=== PATIENT | female | born 1965 | race Caucasian/White ===

== ENCOUNTER 2020-06-14 10:27 | Outpatient (CLI) | payer BC, SELFPAY ==
--- NOTE | ~2020-06-14 | US_ITS ---
EXAMINATION: US venous doppler [facility] DATE: 06/14/2020 11:01 INDICATION: Lower limb pain TECHNIQUE: Francis scale images without and with compression and Doppler images of the bilateral lower e xtremity veins were obtained. COMPARISON: None FINDINGS: The right common femoral vein, profunda femoral vein, femoral vein, popliteal vein, peroneal trunk, p osterior tibial veins, and greater saphenous vein are patent. The left common femoral vein, profunda femoral vein, femoral vein, popliteal vein, peroneal trunk, po sterior tibial veins, and greater saphenous vein are patent. IMPRESSION: 1. Patent bilateral lower extremity veins. No evidence of deep venous thrombosis. Reviewed, dictated and finalized at location A. [employer] IMPRESSION: 1. Patent bilateral lower extremity veins. No evidence of deep venous thrombosi s.
== END 2020-06-14 10:28 | disposition home or self-care (01) ==
PROVIDERS: PCP Family Medicine; Visit Provider Physician Assistant Medical
DX: M79.662 Pain in left lower leg (principal)
CPT/HCPCS: 93970

== ENCOUNTER 2023-07-25 08:09 | Outpatient (CLI) | payer BC, SELFPAY ==
--- NOTE | 2023-08-20 14:10 | WPDHOMESLEEP ---
Sleep Study - Home Unattended Date of Study: 07/25/23 Ordering Provider: Fito Cortes MD Interpreting Provider: Toña Beatty, DO Home Sleep Study Type: Watch PAT Height: 1.7 m Weight: 100.698 kg Body Mass Index: 34.7 Neck Circumference (inches): 14 Norman: 8 Reason for Sleep Study Snoring, daytime hypersomnia Sleep History The patient is a 58-year-old female with anxiety, Crohn's disease, diabetes, sinus disease and history tobacco use that had a sleep study ordered by her primary care for evaluation of sleep apnea. The patient rarely awakens sleep short of breath. She occasionally awakens at night with heartburn, belching or cough. She constantly snores and is occasionally loud that others complain. She constantly has trouble sleeping when she has a cold. She rarely wakes up gasping for air throughout the night. She rarely has breathing problems at night observed by herself or others. She occasionally sweats excessively at night. She denies having heart palpitations or irregular heartbeats during the night. She rarely falls asleep during the day and never falls asleep driving. She denies sleep paralysis and cataplexy. She occasionally has trouble at school or work due to sleepiness. She constantly experiences vivid dreamlike scenes upon awakening or falling asleep. She denies feeling afraid of going to sleep. She occasionally has nightmares and frequently remembers her dreams. She constantly has thoughts racing through her mind. She occasionally feels sad or depressed. She frequently has anxiety. She occasionally has muscular tension. She rarely notices parts of her body jerk. She constantly kicks during the night. She constantly has crawling and aching feelings in her legs and occasionally has leg pain during the night. She rarely grinds her teeth during sleep and never awakens with morning jaw pain. She is constantly bothered by pain during the day and occasionally awakened by pain during the night. She constantly wakes up feeling stiff in the morning. He frequently wakes up with sore or achy muscles. She occasionally wakes up with pain in the neck, spine and other joints. She goes to bed at 8:30 p.m. on weekdays and at 9:00 p.m. on the weekends. She is able to fall asleep quickly. She wakes up 4 times throughout the night for unknown reasons and is able to fall back asleep within 10 minutes. He wakes up at 7:00 a.m. on both weekdays and weekends. She typically gets 3-6 hours of sleep per night. She denies staying in bed after waking up in the morning. He currently lives with her and sister. She will consume caffeinated beverages within 2 hours of bedtime. She denies engaging in physical exercise before bedtime. She denies reading and watching television before falling asleep. She denies taking naps in afternoon or evening. She will consume 64 oz of caffeinated herbal tea daily. She quit smoking cigarettes 25 years ago. She denies alcohol and recreational drug use. [facility] Past Medical History Medical History Abscess of scalp Adult BMI 38.0-38.9 kg/sq m BMI 34.0-34.9,adult BMI 36.0-36.9,adult BMI greater than 30 BMI greater than 40 BMI over 35 Family History Family History Sibling Family history of diabetes mellitus in first degree relative Malignant neoplasm of prostate Father Family history of heart disease in male family member before age 55 Mother Cerebrovascular accident Blood clot in vein Alzheimer disease Other Hypertension Social History Social History Smoking status: Former smoker Tobacco type: cigarettes Second hand tobacco smoke exposure: No Smoking end date: 08/13/96 Alcohol intake: never Substance use: current Substance use type: marijuana Living arrangements: with family
[2023-08-20 14:24] VITALS: BMI 34.7
== END 2023-07-26 08:00 | disposition home or self-care (01) ==
LOC: ANHCSM 08:12
PROVIDERS: PCP Family Medicine; Visit Provider Family Medicine
DX: G47.30 Sleep apnea, unspecified (principal); G47.19 Other hypersomnia
CPT/HCPCS: 95800

== ENCOUNTER 2023-10-01 08:46 | Outpatient (CLI) | payer BC, SELFPAY ==
--- NOTE | ~2023-10-01 | US_ITS ---
Limited Abdominal Sonogram: Real-time sonographic imaging of the right upper quadrant was performed. Clinical History: Right upper quadrant pain Findings: The liver appears normal with no evidence of mass lesion or bile duct dilatation. Main por jacobo vein demonstrates normal direction of flow. The gallbladder is well distended, and appears normal with no evidence of gallstone or wall thickening. The common bile duct measures 2 mm. The visualize d pancreas, aorta, and IVC are unremarkable. Impression: No significant abnormality seen. Reviewed, dictated and finalized at location M. OUT HAND Impression: No significant abnormality seen.
== END 2023-10-01 08:47 | disposition home or self-care (01) ==
PROVIDERS: PCP Family Medicine; Visit Provider Physician Assistant Medical
DX: R10.11 Right upper quadrant pain (principal); D64.9 Anemia, unspecified; Z13.29 Encounter for screening for other suspected endocrine disorder
CPT/HCPCS: 76705

== ENCOUNTER 2023-12-23 13:26 | Emergency (ER) | payer BC, SELFPAY ==
--- NOTE | ~2023-12-23 | CT_ITS ---
EXAMINATION: CT brain wo con DATE: 12/23/2023 14:42 INDICATION: Head injury. Loss of consciousness. TECHNIQUE: Computed tomography (CT) of the head was performed without intravenous contrast. The mA wa s adjusted according to patient size. Iterative reconstruction technique was employed. The dose-lengt h product was 605.33 mGy-cm. COMPARISON: None FINDINGS: There is no intracranial hemorrhage, acute infarction, or abnormal intracranial mass lesion . There are scattered areas of low attenuation in the cerebral white matter, which is within normal l imits for the patient's age. The ventricles are normal in size. There is a left posterior scalp hemat nancie. The paranasal sinuses are clear. The orbits are normal. The mastoid air cells are normal. IMPRESSION: 1. Normal aging brain. Reviewed, dictated and finalized at location E. IMPRESSION: 1. Normal aging brain.
[2023-12-23 13:29] VITALS: PULSE 85; RESP 17; O2SAT 100
--- NOTE | 2023-12-23 13:35 | ED.FALL ---
HPI - Fall General Chief Complaint: Fall Stated Complaint: Fall, +LOC Time Seen by Provider: 12/23/23 13:27 Source: patient Mode of arrival: ambulatory Limitations: no limitations History of Present Illness HPI Narrative: This is a 58 year old female who presents to the ED with chief complaint of a fall that occurred yesterday. Patient reports that she tripped going backwards down a hill. She reports that she had the back of her head and did have LOC. She reports that she has been feeling off balance ever since. Denies focal numbness, weakness headache, vision change, speech change nausea for further site of injury. Related Data Home Medications Medication Instructions Recorded Confirmed albuterol sulfate 90 mcg/actuation 1 inhalation inhalation Q4H 08/03/19 12/12/23 aerosol inhaler (ProAir HFA) Allergies Allergy/AdvReac Type Severity Reaction Status Date / Time Tetanus Vaccines and Toxoid Allergy Unknown Unknown Verified 12/12/23 08:23 metformin AdvReac Severe GI issues Verified 12/12/23 08:23 Review of Systems Review of Systems: All systems as dictated in HPI [facility] Past Medical History Medical History Abscess of scalp Adult BMI 38.0-38.9 kg/sq m BMI 33.0-33.9,adult BMI 34.0-34.9,adult BMI 36.0-36.9,adult BMI greater than 30 BMI greater than 40 BMI over 35 Wellness examination Family History Family History Sibling Family history of diabetes mellitus in first degree relative Malignant neoplasm of prostate Father Family history of heart disease in male family member before age 55 Mother Cerebrovascular accident Blood clot in vein Alzheimer disease Other Hypertension Social History Social History Smoking status: Former smoker Tobacco type: cigarettes Second hand tobacco smoke exposure: No Smoking end date: 08/13/96 Alcohol intake: never Substance use: current Substance use type: marijuana Living arrangements: with family Occupation/Education: occupation 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 HEAD: Normocephalic, atraumatic. EYES: PERRLA and EOMI. ENT: Nares clear, no rhinorrhea or epistaxis. Mucous membranes moist. Oropharynx without tonsillar hypertrophy exudate or other lesions. NECK: Supple. No adenopathy or masses. CHEST: No respiratory distress. Clear to auscultation. No wheezes rales or rhonchi HEART: Regular rate and rhythm. No murmur heard. Normal peripheral pulses. ABDOMEN: Soft, nontender, nondistended, normal active bowel sounds. MSK: Normal range of motion. No edema. SKIN: Warm, dry, no rash. NEURO: Alert and oriented x3. No focal deficits. PSYCH: Normal mood and affect. Course Vital Signs Vital signs: Vital Signs Pulse Rate 85 12/23/23 13:29 Respiratory Rate 17 12/23/23 13:29 Pulse Oximetry 100 12/23/23 13:29 Oxygen Delivery Room Air 12/23/23 13:29 Temperature 97.8 F 12/23/23 13:36 Pulse Rate 76 12/23/23 13:36 Respiratory Rate 17 12/23/23 13:36 Blood Pressure 147/72 H 12/23/23 13:36 Pulse Oximetry 100 12/23/23 13:36 Oxygen Delivery Room Air 12/23/23 13:29 MDM - Fall MDM Narrative Medical decision making narrative: This is a 58-year-old female who presents to the ED with chief complaint of head injury that occurred yesterday. Vitals are normal. Exam is benign. No neurologic deficit. She did complain of possible LOC yesterday so he CT scan was ordered. CT brain is without acute findings. She is exhibiting no symptoms currently. She is able to walk on her own. Symptoms consistent with concussion Pt will be discharged in stable condition. Return precautions given and supportive measures discussed. Pt is understanding and a
[2023-12-23 13:36] VITALS: BP 147/72; PULSE 76; RESP 17; TEMP 36.6; O2SAT 100
== END 2023-12-23 15:09 | disposition home or self-care (01) ==
PROVIDERS: Emergency Provider Physician Assistant; PCP Family Medicine
DX: S06.0X9A Concussion with loss of consciousness of unspecified duration, initial encounter (principal); Z87.891 Personal history of nicotine dependence; W10.2XXA Fall (on)(from) incline, initial encounter
CPT/HCPCS: 70450; 99284

== ENCOUNTER 2023-12-31 11:08 | Outpatient (CLI) | payer BC, SELFPAY ==
--- NOTE | ~2023-12-31 | XR_ITS ---
Right Hand Technique: PA, oblique, and lateral views were obtained. Clinical History: Osteoarthritis Findings: No acute fracture or dislocation is seen. Osseous alignment is anatomic. Scattered minimal degenerative changes are present. Soft tissues are unremarkable. Impression: Scattered minimal degenerative changes. Reviewed, dictated and finalized at location . Impression: Scattered minimal degenerative changes.
== END 2023-12-31 11:09 | disposition home or self-care (01) ==
LOC: ANHIMG 11:10
PROVIDERS: PCP Family Medicine; Visit Provider Plastic Surgery
DX: M18.11 Unilateral primary osteoarthritis of first carpometacarpal joint, right hand (principal)
CPT/HCPCS: 73130

== ENCOUNTER 2024-02-21 08:48 | Outpatient (CLI) | payer BC, SELFPAY ==
--- NOTE | ~2024-02-21 | MR_ITS ---
MRI of the brain Clinical History: Concussion, headache Technique: Axial and sagittal T1-weighted images were acquired. These were followed by axial T2-weigh pallavi, diffusion weighted, gradient, and FLAIR images. Following intravenous administration of 18 cc Mu ltiHance gadolinium, T1-weighted fat-sat imaging was performed in the axial and coronal planes. Findings: There is no abnormal signal in the brain parenchyma. No acute infarct, intracranial hemorrh age or mass lesion. Ventricles and subarachnoid spaces are unremarkable. Orbits are unremarkable. Paranasal sinuses and m astoid air cells are clear. Major intracranial flow voids are intact. Sagittal midline structures are intact. No abnormal postcontrast enhancement identified. IMPRESSION: Unremarkable exam. Reviewed, dictated and finalized at location . IMPRESSION: Unremarkable exam.
== END 2024-02-21 08:49 | disposition home or self-care (01) ==
PROVIDERS: PCP Family Medicine; Visit Provider Physician Assistant Medical
DX: G44.52 New daily persistent headache (NDPH) (principal); S06.0XAA Concussion with loss of consciousness status unknown, initial encounter; X58.XXXA Exposure to other specified factors, initial encounter
CPT/HCPCS: 70553; A9577

== ENCOUNTER 2024-02-27 18:00 | Inpatient (IN) | payer BC, SELFPAY ==
--- NOTE | ~2024-02-27 | XR_ITS ---
XR chest 1V portable Ordering provider: Reji Ballesteros MD History: 58 years Female with . dizziness. HEAD INJ DECEMBER 2023 . Comparison: None. FINDINGS: MEDIASTINUM: The cardiac silhouette is slightly enlarged. LUNGS: No infiltrates, effusions or pneumothorax. OTHER: No free air under the diaphragm. Degenerative changes of the spine. IMPRESSION: No acute cardiopulmonary pathology. Reviewed, dictated and finalized at location A.
--- NOTE | ~2024-02-27 | CT_ITS ---
Non-contrast CT scan of the Abdomen and Pelvis Clinical indication: Leukocytosis Technique: 2.5 mm axial scans were obtained through the abdomen and pelvis without intravenous or or al contrast. Dose reduction technique was used on this scan by utilizing automated exposure control a nd iterative reconstruction technique. The dose-length product (DLP) was 816.02 mGy-cm. Findings: Images through the lung bases reveal no abnormalities. There is no evidence of renal or ureteral calculi. The kidneys and the ureters are nondilated. There is probable asymmetric right perinephric stranding. The liver, pancreas, gallbladder, and adrenals appear normal. Calcified splenic granulomas are presen t. There is no aortic aneurysm. There is no evidence of bowel obstruction. There is prominent stool at the rectum, the additional ext ensive stool in large bowel. Images through the pelvis were performed. There is no evidence of ascites or lymphadenopathy. Urinary bladder unremarkable. Status post hysterectomy. No pelvic mass seen. Impression: Asymmetric right perinephric stranding. Consider pyelonephritis. Consider contrast enhanced CT to bet ter evaluate for pyonephritis, if indicated. Correlate with urinalysis. Probable fecal impaction and constipation. Reviewed, dictated and finalized at location . Impression: Asymmetric right perinephric stranding. Consider pyelonephritis. Consider contr ast enhanced CT to better evaluate for pyonephritis, if indicated. Correlate wi urinalysis. Probable fecal impaction and constipation.
[2024-02-27 18:10] VITALS: BP 144/63; PULSE 97; RESP 16; TEMP 37.1; O2SAT 99
[2024-02-27 19:29] LABS: Hematocrit 36.1 % (37.0-47.0); Hemoglobin 12.4 g/dL (12.0-15.0); Mean Corpuscular HGB Conc 34.3 g/dl (32-36); Mean Corpuscular Hemoglobin 29.2 pg (26-34); Mean Corpuscular Volume 84.9 fl (80-100); Mean Platelet Volume 10.4 fl (7.4-10.4); Platelet Count Result 257 k/mm3 (150-375); Red Blood Count 4.25 M/mm3 (4.2-5.4); Red Cell Distribution Width 13.1 % (11.5-14.5)
--- NOTE | 2024-02-27 19:38 | ED.GENADULT ---
HPI - General Adult General Chief complaint: Unspecified Stated complaint: head injury December 2023. persistent N/V Time Seen by Provider: 02/27/24 18:57 History of Present Illness HPI narrative: Patient is a 58-year-old female who presents ER with dizziness. Ongoing since December 2023. She had a fall on mother's Day and resulted in her striking her head. She has had dizziness when she lays down flat since then. She also has mild headache and is foggy. She had an outpatient MRI on 02/21/2024 which showed no abnormalities and before that she had had a normal CT scan. She has tried no oral medications for her symptoms. No sinus congestion or sore throat or productive cough. With no focal weakness in arm or leg. No slurred speech. Related Data Home Medications Medication Instructions Recorded Confirmed albuterol sulfate 90 mcg/actuation 1 inhalation inhalation Q4H 08/03/19 02/20/24 aerosol inhaler (ProAir HFA) Allergies Allergy/AdvReac Type Severity Reaction Status Date / Time Tetanus Vaccines and Toxoid Allergy Unknown Unknown Verified 02/20/24 15:00 metformin AdvReac Severe GI issues Verified 02/20/24 15:00 Review of Systems Review of Systems: All systems reviewed & are unremarkable except as noted in HPI and below Constitutional: Constitutional: Denies chills, Denies fever(s), Reports headache(s) and Reports lethargy ENT: Reports dizziness, Denies sinus pressure and Denies sore throat Cardiovascular: Cardiovascular: Reports no additional cardiovascular complaints Respiratory: Respiratory: Reports no additional respiratory complaints [facility] Past Medical History Medical History (Updated 02/27/24 @ 21:34 by Reji Ballesteros MD) Abscess of scalp Concussion Crohn's disease in remission Depression with anxiety Essential (primary) hypertension Mixed hyperlipidemia Type 2 diabetes mellitus without complications Wellness examination Family History Family History Sibling Family history of diabetes mellitus in first degree relative Malignant neoplasm of prostate Father Family history of heart disease in male family member before age 55 Mother Cerebrovascular accident Blood clot in vein Alzheimer disease Other Hypertension Social History Social History Smoking status: Former smoker Tobacco type: cigarettes Second hand tobacco smoke exposure: No Smoking end date: 08/13/96 Alcohol intake: never Substance use: current Substance use type: marijuana Do You Feel Safe in your Home?: Yes Lack of Transportation: No Lack of Food: Never True Current Housing: I Have Housing Concerned About Future Housing: No Difficulty Paying Gas/Electric Bills: No Difficulty Paying for Meds: YES Currently Unemployed: No Education: Trade/Vocational Certificate Difficulty w/ Childcare or Family Care: No Living arrangements: with family Occupation/Education: occupation Additional occupation/education comments: [employer] Exam Narrative: GENERAL: Lying in right lateral decubitus position as a position of comfort, well-nourished, and diaphoretic when laying flat. HEAD: Normocephalic, atraumatic. EYES: PERRL and EOMI. No nystagmus. ENT: Mucous membranes moist. TM's normal. CHEST: Clear to auscultation. No respiratory distress. HEART: Regular rate and rhythm. Normal peripheral pulses. EXTREMITIES: Normal range of motion. No edema. SKIN: Warm, dry, no rash. NEURO: Alert and oriented x3. PSYCH: Normal mood and affect. Course Course Emergency Course: Patient feels improved with IV fluid and meclizine. Patient does however have significant UTI with elevation in her white blood cell count. Admit for observation and IV antibiotics as well as hydration and scheduled meclizine. Vital Signs Vital signs: Vital Signs Temperature 98.8 F 02/27/24 18:10 Pulse Rate 97
[2024-02-27 19:41] LABS: Alanine Aminotransferase 22 U/L (6-35); Albumin Level 3.9 g/dL (3.5-5.1); Alkaline Phosphatase 93 U/L (38-126); Anion Gap 11 mmol/L (4-12); Aspartate Amino Transferase 23 U/L (14-36); Bilirubin,Total 0.6 mg/dL (0.2-1.3); Blood Urea Nitrogen 13 mg/dL (7-17); Carbon Dioxide 22 mmol/L (22-30); Chloride 98 mmol/L (98-107); Estimated CRCL calculation 97 ml/min; Estimated Glomerular Filt Rate > 60; Glucose 228 mg/dL (65-110); Potassium 4.2 mmol/L (3.4-5.0); Sodium 131 mmol/L (137-145)
[2024-02-27] MEDS: MECLIZINE HCL 25 MG TABLET PO (19:58)
[2024-02-27] MEDS: SODIUM CHLORIDE 0.9% IV 1,000 ML 999 ML IV CONT (19:58)
[2024-02-27] MEDS: ONDANSETRON INJ 4 MG/2 ML VIAL IV PUSH (19:58)
[2024-02-27 20:32] LABS: Band Neutrophils Percent 4 % (0-6); Lymphocytes Absolute Manual 0.92 K/mm3 (1.1-4.5); Monocytes Absolute Manual 1.15 K/mm3 (0.1-0.90); Monocytes Percent Manual 5 % (3-9); Neutrophils Absolute Manual 20.93 K/mm3 (1.7-7.2); Neutrophils Percent Manual 87 % (46-73); Platelet Estimate Adequate (Adequate); Total Cells Counted 100
[2024-02-27 20:33] LABS: Anisocytosis 1+; Schistocytes None Seen
[2024-02-27 21:12] LABS: Appearance Urine Turbid (Clear); Bacteria Urine 4+ /hpf; Bilirubin Urine Negative (Negative); Blood Urine 2+ (Negative); Color Urine Yellow (Yellow); Glucose Urine UA 3+ mg/dL (Negative); Ketones Urine 3+ mg/dL (Negative); Leukocyte Esterase Ur 2+ LEU/UL (Negative); Need Manual Microscopic Reviewed; Nitrate Urine Positive (Negative); Protein Urine 2+ mg/dL (Negative); RBC Urine 21-50 /hpf (0-2); Specific Grav Ur 1.023 (1.001-1.035); Squamous Epithelial Cell Urine Few /hpf (Few); WBC Urine >100 /hpf (0-3)
[2024-02-27 21:14] LABS: Add Urine Microscopic? YES
[2024-02-27 22:05] VITALS: BP 141/69; PULSE 85; RESP 16; TEMP 38.1; O2SAT 98
--- NOTE | 2024-02-27 22:20 | PM.IMHP ---
H&P: HPI History of Present Illness Date/Time: 02/27/24 22:20 Chief Complaint: generalized malaise Narrative: This is a 58 yo female with PMHx significant for COPD/Emphysema, Tobacco dependence. Crohn's disease, T2DM.Patient presents to the emergency room due to several days of chills, night sweats, nausea, vomiting, poor per orally intake, generalized weakness, dizziness. Preliminary workup was significant for urinalysis with numerous WBCs present. Patient has been admitted for further evaluation management and treatment. XR chest 1V portable Ordering provider: Reji Ballesteros MD History: 58 years Female with . dizziness. HEAD INJ DECEMBER 2023 . Comparison: None. FINDINGS: MEDIASTINUM: The cardiac silhouette is slightly enlarged. LUNGS: No infiltrates, effusions or pneumothorax. OTHER: No free air under the diaphragm. Degenerative changes of the spine. IMPRESSION: No acute cardiopulmonary pathology. Review of Systems Review of Systems: Generalized malaise, chills, night sweats, nausea, vomiting, poor per orally intake, pain and burning with urination, dizziness PMFSH Past Medical History Medical History (Updated 02/27/24 @ 22:35 by Hawk Ayala MD) Abscess of scalp Concussion Crohn's disease in remission Depression with anxiety Essential (primary) hypertension Mixed hyperlipidemia Type 2 diabetes mellitus without complications Wellness examination Family History Family History Sibling Family history of diabetes mellitus in first degree relative Malignant neoplasm of prostate Father Family history of heart disease in male family member before age 55 Mother Cerebrovascular accident Blood clot in vein Alzheimer disease Other Hypertension Social History Social History Smoking status: Current every day smoker Tobacco type: e-cigarettes/vaping Second hand tobacco smoke exposure: No Smoking end date: 08/13/96 Additional smoking assessment comments: daily Alcohol intake: never Substance use: current Substance use type: marijuana Other substance usage details: nightly Do You Feel Safe in your Home?: Yes Lack of Transportation: No Lack of Food: Never True Current Housing: I Have Housing Concerned About Future Housing: No Difficulty Paying Gas/Electric Bills: No Difficulty Paying for Meds: YES Currently Unemployed: No Education: Trade/Vocational Certificate Difficulty w/ Childcare or Family Care: No Living arrangements: with family Occupation/Education: occupation 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 care 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: No Meds Home Medications and Allergies Home Medications Medication Instructions Recorded Confirmed Type albuterol sulfate 90 mcg/actuation 2 inhalation inhalation Q4H 08/03/19 02/27/24 History aerosol inhaler (ProAir HFA) lisinopril 10 mg tablet 10 mg PO DAILY #90 tabs 12/12/23 02/27/24 Rx metformin 500 mg tablet,extended 1,000 mg PO DAILY #180 tabs 12/12/23 02/27/24 Rx release 24 hr alprazolam 0.5 mg tablet 0.25 mg PO TID PRN anxiety #60 tabs 01/27/24 02/27/24 Rx fluoxetine 40 mg capsule 40 mg PO DAILY 02/27/24 02/27/24 History omeprazole 40 mg capsule,delayed 40 mg PO BID PRN gerd 02/27/24 02/27/24 History release pseudoephedrine HCl 120 mg 120 mg PO Q12H 02/27/24 02/27/24 History tablet,extended release ([employer]) tirzepatide 7.5 mg/0.5 mL 7.5 mg subcut WEEKLY 02/27/24 02/27/24 History subcutaneous pen injector (Garry) Allergies Allergy/AdvReac Type Severity Reaction Status Date / Time Tetanus Vaccines and Toxoid Allergy Unknown Unknown Verified 02/20/24 15:00 metformin AdvReac Severe GI issues Verified 02/20/24 15:00 Vital Signs Vital Signs - 24 hr 02/27/24 18:10 02/27/24 22:05 Temperature 98.8 F 100.5 F H Pulse Rate 97 85
[2024-02-27 22:34] VITALS: BP 146/55; PULSE 87; RESP 18; TEMP 36.9; O2SAT 98; BMI 30.1
--- NOTE | 2024-02-27 22:36 | ADMGEN ---
This patient, Ann Viera, was admitted to 2 Medical Room 240-. Patient/family oriented to hospital policies and general routines including ID bracelet, bed and alarms, visiting hours, pain management, procedures, bathroom and other care routines, personal items, smoking policy, room service/diet, and visiting hours. Information on how to activate the Rapid Response Team has been discussed. Patient/Family are encouraged to report perceived risks to care and to ask questions if they do not understand what they are told or what they should do.
[2024-02-27] MEDS: SODIUM CHLORIDE 0.9% IV 1,000 ML 125 ML IV CONT (23:16)
[2024-02-28] VITALS (7 sets, daily range): BP systolic 113–146; BP diastolic 47–60; PULSE 77–100; RESP 16–20; TEMP 36.6–37.1; O2SAT 95–100
[2024-02-28] MEDS: ALBUTEROL SULFATE (*SP) AEROSOL 1 PUFF 2 PUFF INHALATION ×4 (00:49→20:23)
[2024-02-28] MEDS: SODIUM CHLORIDE 0.9% IV 1,000 ML 125 ML IV CONT ×2 (07:28→17:50)
[2024-02-28 07:55] LABS: Hematocrit 33.8 % (37.0-47.0); Hemoglobin 11.4 g/dL (12.0-15.0); Mean Corpuscular HGB Conc 33.7 g/dl (32-36); Mean Corpuscular Hemoglobin 29.1 pg (26-34); Mean Corpuscular Volume 86.2 fl (80-100); Mean Platelet Volume 10.7 fl (7.4-10.4); Platelet Count Result 219 k/mm3 (150-375); Red Blood Count 3.92 M/mm3 (4.2-5.4); Red Cell Distribution Width 13.2 % (11.5-14.5); White Blood Count 15.8 K/mm3 (4.5-10.0)
[2024-02-28 08:05] LABS: Alanine Aminotransferase 17 U/L (6-35); Albumin Level 3.3 g/dL (3.5-5.1); Alkaline Phosphatase 83 U/L (38-126); Anion Gap 8 mmol/L (4-12); Aspartate Amino Transferase 17 U/L (14-36); Bilirubin,Total 0.4 mg/dL (0.2-1.3); Blood Urea Nitrogen 11 mg/dL (7-17); Calcium 8.7 mg/dL (8.4-10.2); Carbon Dioxide 24 mmol/L (22-30); Chloride 100 mmol/L (98-107); Estimated CRCL calculation 85 ml/min; Estimated Glomerular Filt Rate > 60; Glucose 188 mg/dL (65-110); Lipase 47 U/L (23-300); Potassium 4.1 mmol/L (3.4-5.0); Sodium 132 mmol/L (137-145)
[2024-02-28] MEDS: PANTOPRAZOLE 40 MG TABLET PO ×2 (08:09→20:19)
[2024-02-28] MEDS: lisinopriL 10 MG TABLET PO (08:09)
[2024-02-28] MEDS: FLUoxetine HCL 20 MG CAPSULE 40 MG PO (08:09)
[2024-02-28 08:35] LABS: Glucose Point of Care 198 mg/dl (65-105)
[2024-02-28] MEDS: MECLIZINE HCL 12.5 MG TABLET PO ×4 (10:37→20:18)
[2024-02-28 11:57] LABS: Glucose Point of Care 199 mg/dl (65-105)
--- NOTE | 2024-02-28 12:23 | P.PNIM_ITS ---
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 HS * sliding scale insulin * hold oral diabetic medications and 1 to RO * Diabetic diet * encourage lifestyle modifications and weight loss * Optimize Blanco inhibitors and statins. * Watch for hypoglycemia/hypoglycemic protocol ordered Smoking ? smoking cessation education ? nicotine patch daily ? remove at night HX Vertigo: resumed meclizine HX anxiety: Resumed home medications Code status: Full code per patient DVT prophylaxis: Lovenox Stress ulcer prophylaxis: Protonix 40 daily PT/OT notes: Ambulatory Disposition: Patient admitted to medical unit with pyelonephritis, sepsis, UTI continue with IV antibiotics pending cultures Time Spent With Patient Time with patient: 15 - 25 minutes Subjective Date/time seen: 02/28/24 12:23 Interval history: Admission: Medical Record This is a 58 yo female with PMHx significant for COPD/Emphysema, Tobacco dependence. Crohn's disease, T2DM.Patient presents to the emergency room due to several days of chills, night sweats, nausea, vomiting, poor per orally intake, generalized weakness, dizziness. Preliminary workup was significant for urinalysis with numerous WBCs present. Patient has been admitted for further evaluation management and treatment. 02/28/2024: Patient with no complaints states pain has improved, afebrile overnight and WBC improving. Did a CT ABD which showed right pyelonephritis. Will continue with IV Rocephin pending cultures. Review of Systems Review of Systems: All systems reviewed & are unremarkable except as noted in HPI and below Exam Narrative: Physical Exam: * GENERAL: Alert and oriented x 3. No acute distress. * EYES: EOMI. No scleral icterus. PERRLA. * HEENT: Moist mucous membranes. * LUNGS: Clear to auscultation bilaterally. No accessory muscle use. * CARDIOVASCULAR: Regular rate and rhythm. No murmur. No JVD. S1-S2 * ABDOMEN: Soft, non tenderness and non-distended. No palpable masses. * EXTREMITIES: No edema. Non-tender * SKIN: No rashes or lesions. Skin warm, dry. * NEUROLOGIC: No focal neurological deficits. CN II-XII grossly intact * PSYCHIAT
--- NOTE | 2024-02-28 12:23 | PM.IMPN ---
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 HS sliding scale insulin hold oral diabetic medications and 1 to RO Diabetic diet encourage lifestyle modifications and weight loss Optimize Blanco inhibitors and statins. Watch for hypoglycemia/hypoglycemic protocol ordered Smoking ? smoking cessation education ? nicotine patch daily ? remove at night HX Vertigo: resumed meclizine HX anxiety: Resumed home medications Code status: Full code per patient DVT prophylaxis: Lovenox Stress ulcer prophylaxis: Protonix 40 daily PT/OT notes: Ambulatory Disposition: Patient admitted to medical unit with pyelonephritis, sepsis, UTI continue with IV antibiotics pending cultures Time Spent With Patient Time with patient: 15 - 25 minutes Subjective Date/time seen: 02/28/24 12:23 Interval history: Admission: Medical Record This is a 58 yo female with PMHx significant for COPD/Emphysema, Tobacco dependence. Crohn's disease, T2DM.Patient presents to the emergency room due to several days of chills, night sweats, nausea, vomiting, poor per orally intake, generalized weakness, dizziness. Preliminary workup was significant for urinalysis with numerous WBCs present. Patient has been admitted for further evaluation management and treatment. 02/28/2024: Patient with no complaints states pain has improved, afebrile overnight and WBC improving. Did a CT ABD which showed right pyelonephritis. Will continue with IV Rocephin pending cultures. Review of Systems Review of Systems: All systems reviewed & are unremarkable except as noted in HPI and below Exam Narrative: Physical Exam: GENERAL: Alert and oriented x 3. No acute distress. EYES: EOMI. No scleral icterus. PERRLA. HEENT: Moist mucous membranes. LUNGS: Clear to auscultation bilaterally. No accessory muscle use. CARDIOVASCULAR: Regular rate and rhythm. No murmur. No JVD. S1-S2 ABDOMEN: Soft, non tenderness and non-distended. No palpable masses. EXTREMITIES: No edema. Non-tender SKIN: No rashes or lesions. Skin warm, dry. NEUROLOGIC: No focal neurological deficits. CN II-XII grossly intact PSYCHIATRIC: Appropriate mood and affect. Good judgement and insight. No visual or auditory hallucinations. No suicidal or homicidal ideation. Objective Data Vital Signs Vital Signs: Vital Signs - 24 hr 02/27/24 18:10 02/27/24 22:05 02/27/24 22:34 Temperature 98.8 F 100.5 F H 98.4 F Pulse Rate 97 85 87 Respiratory Rate 16 16 18 Blood Pressure 144/63 H 141/69 H 146/55 H Pulse Oximetry 99 98 98 Oxygen Delivery Room Air 02/28/24 00:50 02/27/24 22:35 02/28/24 05:22 Temperature 97.8 F Pulse Rate 100 Respiratory Rate 17 Bloo
[2024-02-28] MEDS: cefTRIAXone 2 GM/NS 100 ML 2 GM/100 ML BAG IVPB (15:04)
[2024-02-28 16:52] LABS: Glucose Point of Care 161 mg/dl (65-105)
[2024-02-28 21:33] LABS: Glucose Point of Care 202 mg/dl (65-105)
[2024-02-29] MEDS: SODIUM CHLORIDE 0.9% IV 1,000 ML 125 ML IV CONT ×3 (01:28→20:20)
[2024-02-29 05:02] LABS: Hematocrit 31.9 % (37.0-47.0); Hemoglobin 10.4 g/dL (12.0-15.0); Mean Corpuscular HGB Conc 32.6 g/dl (32-36); Mean Corpuscular Hemoglobin 29.4 pg (26-34); Mean Corpuscular Volume 90.1 fl (80-100); Mean Platelet Volume 11.2 fl (7.4-10.4); Platelet Count Result 193 k/mm3 (150-375); Red Blood Count 3.54 M/mm3 (4.2-5.4); Red Cell Distribution Width 13.2 % (11.5-14.5); White Blood Count 8.3 K/mm3 (4.5-10.0)
[2024-02-29 05:11] LABS: Alanine Aminotransferase 21 U/L (6-35); Albumin Level 2.9 g/dL (3.5-5.1); Alkaline Phosphatase 81 U/L (38-126); Anion Gap 6 mmol/L (4-12); Aspartate Amino Transferase 29 U/L (14-36); Bilirubin,Total 0.3 mg/dL (0.2-1.3); Blood Urea Nitrogen 10 mg/dL (7-17); Calcium 8.4 mg/dL (8.4-10.2); Carbon Dioxide 23 mmol/L (22-30); Chloride 104 mmol/L (98-107); Estimated CRCL calculation 97 ml/min; Estimated Glomerular Filt Rate > 60; Glucose 179 mg/dL (65-110); Potassium 3.9 mmol/L (3.4-5.0); Sodium 133 mmol/L (137-145)
[2024-02-29 06:10] VITALS: BP 149/69; PULSE 95; RESP 16; TEMP 36.6; O2SAT 100
[2024-02-29 07:30] VITALS: O2SAT 97
[2024-02-29] MEDS: ALBUTEROL SULFATE (*SP) AEROSOL 1 PUFF 2 PUFF INHALATION ×4 (07:30→21:22)
[2024-02-29 08:05] LABS: Glucose Point of Care 166 mg/dl (65-105)
[2024-02-29] MEDS: cefTRIAXone 2 GM/NS 100 ML 2 GM/100 ML BAG IVPB (08:31)
[2024-02-29] MEDS: FLUoxetine HCL 20 MG CAPSULE 40 MG PO (08:32)
[2024-02-29] MEDS: PANTOPRAZOLE 40 MG TABLET PO ×2 (08:32→20:08)
[2024-02-29] MEDS: lisinopriL 10 MG TABLET PO (08:32)
[2024-02-29] MEDS: MECLIZINE HCL 12.5 MG TABLET PO ×4 (08:32→20:08)
--- NOTE | 2024-02-29 09:07 | P.PNIM_ITS ---
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 Has been clinically improving on ceftriaxone but resistant * CT abdomen showing right pyelonephritis * IV Rocephin changed to meropenem * IV fluids * Blood cultures 1/2 GNB, repeat cultures today. Urine culture growing ecoli resistant to ceftriaxone * Consider PICC like and discharge with a 10 day course to complete with ertapenem if blood cultures growing the same * Check orthostatics for report of dizziness, though seems resolved Pyelonephritis/UTI * UA positive for leukocytes nitrates * CT abdomen showing right pyelonephritis * blood cultures 1/2 growing GNB's. Repeat blood cultures today. Continue daily until negative * Change IV Rocephin to meropenem pending cultures * IV fluids * pain control Sinusitis ? Reports chronic nasal drainage ? Hold home Sudafed (discussed rebound congestion when taking regularly) ? Start Cetirizine, Trial of flonase and azelastine Nausea ? Zofran prn Diabetes * Accu-Cheks a.c. HS * sliding scale insulin * hold oral diabetic medications (Mounjaro, Metformin) * Diabetic diet * encourage lifestyle modifications and weight loss * Optimize Blanco inhibitors and statins. * Watch for hypoglycemia/hypoglycemic protocol ordered Smoking ? smoking cessation education ? nicotine patch daily ? remove at night HX Vertigo: resumed meclizine HX anxiety: Resumed home medications Code status: Full code per patient DVT prophylaxis: Lovenox Stress ulcer prophylaxis: Protonix 40 daily PT/OT notes: Ambulatory Disposition: Patient admitted to medical unit with pyelonephritis, sepsis, UTI continue with IV antibiotics pending cultures Subjective Date/time seen: 02/29/24 09:07 Interval history: Nausea today. Dizziness improved, none walking to the bathroom. WBC normalized. Urine culture growing GNB's. Blood cultures positive. Urine culture resistant to ceftriaxone. No flank pain or dysuria at this point Review of Systems Review of Systems: No dysuria, cough, fever, chills, sweats. Dizziness resolved this morning. All systems reviewed & are unremarkable except as noted in HPI and below Exam Narrative: Physical Exam: * GENERAL: Alert and oriented x 3. No acute distress. * EYES: EOMI. No scleral icterus. PERRLA. * HEENT: Moist mucous membranes. * LUNGS: Clear to auscultation bilaterally. No accessory muscle use. * CARDIOVASCULAR: Regular rate and rhythm. No murmur. No JVD. S1-S2 * ABDOME
--- NOTE | 2024-02-29 09:07 | PM.IMPN ---
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 Has been clinically improving on ceftriaxone but resistant CT abdomen showing right pyelonephritis IV Rocephin changed to meropenem IV fluids Blood cultures 1/2 GNB, repeat cultures today. Urine culture growing ecoli resistant to ceftriaxone Consider PICC like and discharge with a 10 day course to complete with ertapenem if blood cultures growing the same Check orthostatics for report of dizziness, though seems resolved Pyelonephritis/UTI UA positive for leukocytes nitrates CT abdomen showing right pyelonephritis blood cultures 1/2 growing GNB's. Repeat blood cultures today. Continue daily until negative Change IV Rocephin to meropenem pending cultures IV fluids pain control Sinusitis ? Reports chronic nasal drainage ? Hold home Sudafed (discussed rebound congestion when taking regularly) ? Start Cetirizine, Trial of flonase and azelastine Nausea ? Zofran prn Diabetes Accu-Cheks a.c. HS sliding scale insulin hold oral diabetic medications (Mounjaro, Metformin) Diabetic diet encourage lifestyle modifications and weight loss Optimize Blanco inhibitors and statins. Watch for hypoglycemia/hypoglycemic protocol ordered Smoking ? smoking cessation education ? nicotine patch daily ? remove at night HX Vertigo: resumed meclizine HX anxiety: Resumed home medications Code status: Full code per patient DVT prophylaxis: Lovenox Stress ulcer prophylaxis: Protonix 40 daily PT/OT notes: Ambulatory Disposition: Patient admitted to medical unit with pyelonephritis, sepsis, UTI continue with IV antibiotics pending cultures Subjective Date/time seen: 02/29/24 09:07 Interval history: Nausea today. Dizziness improved, none walking to the bathroom. WBC normalized. Urine culture growing GNB's. Blood cultures positive. Urine culture resistant to ceftriaxone. No flank pain or dysuria at this point Review of Systems Review of Systems: No dysuria, cough, fever, chills, sweats. Dizziness resolved this morning. All systems reviewed & are unremarkable except as noted in HPI and below Exam Narrative: Physical Exam: GENERAL: Alert and oriented x 3. No acute distress. EYES: EOMI. No scleral icterus. PERRLA. HEENT: Moist mucous membranes. LUNGS: Clear to auscultation bilaterally. No accessory muscle use. CARDIOVASCULAR: Regular rate and rhythm. No murmur. No JVD. S1-S2 ABDOMEN: Soft, non tenderness and non-distended. No palpable masses. EXTREMITIES: No edema. Non-tender SKIN: No rashes or lesions. Skin warm, dry. NEUROLOGIC: No focal neurological deficits. CN II-XII grossly intact PSYCHIATRIC: Appropriate mood and affect. Good judgement and insight. No visual or auditory hallucinations. No suicidal or homicidal ideation. Objective Data Vital Signs Vital Signs: Vital Signs - 24 hr 02/28/24 13:20 02/28/24 14:00 02/28/24 19:24 Temperature 98.2 F 98.7 F Pulse Rate 77 78 88 Respiratory R
[2024-02-29] MEDS: LORATADINE 10 MG TABLET PO (10:01)
[2024-02-29] MEDS: AZELASTINE HCL NASAL 0.1% 137 MCG/SPR 30 ML BTL 1 SPRAY NASAL ×2 (10:01→20:08)
[2024-02-29] MEDS: MEROPENEM 1 GM/NS 100 ML 1 GM/100 ML BAG IVPB ×2 (10:02→17:23)
[2024-02-29 12:14] LABS: Glucose Point of Care 172 mg/dl (65-105)
[2024-02-29 14:00] VITALS: BP 117/63; PULSE 84; RESP 16; TEMP 36.5; O2SAT 100
[2024-02-29 15:58] VITALS: PULSE 86; RESP 18
[2024-02-29 17:01] LABS: Glucose Point of Care 121 mg/dl (65-105)
[2024-02-29] MEDS: FLUTICASONE PROPIONATE 0.05% NA SPR 16 GM BTL (*BKC) 1 SPRAY NASAL (20:08)
[2024-02-29 20:33] LABS: Glucose Point of Care 142 mg/dl (65-105)
[2024-02-29 21:04] VITALS: BP 140/75; PULSE 83; RESP 16; TEMP 36.6; O2SAT 100
[2024-02-29 21:22] VITALS: PULSE 80; RESP 17
[2024-03-01] MEDS: MEROPENEM 1 GM/NS 100 ML 1 GM/100 ML BAG IVPB ×3 (01:19→17:15)
[2024-03-01 06:00] VITALS: BP 149/66; PULSE 84; RESP 16; TEMP 36.6; O2SAT 99
[2024-03-01 06:17] LABS: Hematocrit 30.3 % (37.0-47.0); Hemoglobin 10.2 g/dL (12.0-15.0); Mean Corpuscular HGB Conc 33.7 g/dl (32-36); Mean Corpuscular Hemoglobin 28.8 pg (26-34); Mean Corpuscular Volume 85.6 fl (80-100); Platelet Count Result 218 k/mm3 (150-375); Red Blood Count 3.54 M/mm3 (4.2-5.4); Red Cell Distribution Width 13.2 % (11.5-14.5); White Blood Count 5.2 K/mm3 (4.5-10.0)
[2024-03-01 06:35] LABS: Alanine Aminotransferase 26 U/L (6-35); Albumin Level 2.8 g/dL (3.5-5.1); Alkaline Phosphatase 73 U/L (38-126); Anion Gap 7 mmol/L (4-12); Aspartate Amino Transferase 32 U/L (14-36); Bilirubin,Total 0.2 mg/dL (0.2-1.3); Blood Urea Nitrogen 8 mg/dL (7-17); Calcium 8.5 mg/dL (8.4-10.2); Carbon Dioxide 25 mmol/L (22-30); Chloride 105 mmol/L (98-107); Estimated CRCL calculation 97 ml/min; Estimated Glomerular Filt Rate > 60; Glucose 120 mg/dL (65-110); Potassium 3.7 mmol/L (3.4-5.0); Sodium 137 mmol/L (137-145)
--- NOTE | 2024-03-01 07:27 | P.PNIM_ITS ---
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 Has been clinically improving on ceftriaxone but resistant * CT abdomen showing right pyelonephritis * IV Rocephin changed to meropenem * IV fluids * Blood cultures 1/2 GNB, repeat cultures today. Urine culture growing ecoli res istant to ceftriaxone * Consider PICC like and discharge with a 10 day course to complete with ertapenem if blood cultures growing the same * Check orthostatics for report of dizziness, though seems resolved Pyelonephritis/UTI-Improving * UA positive for leukocytes nitrates * CT abdomen showing right pyelonephritis * blood cultures 1/2 growing GNB's. Repeat blood cultures today. Continue daily until negative * Change IV Rocephin to meropenem pending cultures * IV fluids * pain control Bacteremia * First set ECOLI positive * UTI with ECOLI ESBL * switch to meropenem pending cultures * Follow-up cultures pending Sinusitis ? Reports chronic nasal drainage ? Hold home Sudafed (discussed rebound congestion when taking regularly) ? Start Cetirizine, Trial of flonase and azelastine Nausea ? Zofran prn Diabetes * Accu-Cheks a.c. HS * sliding scale insulin * hold oral diabetic medications (Mounjaro, Metformin) * Diabetic diet * encourage lifestyle modifications and weight loss * Optimize Blanco inhibitors and statins. * Watch for hypoglycemia/hypoglycemic protocol ordered Smoking ? smoking cessation education ? nicotine patch daily ? remove at night HX Vertigo: resumed meclizine HX anxiety: Resumed home medications Code status: Full code per patient DVT prophylaxis: Lovenox Stress ulcer prophylaxis: Protonix 40 daily PT/OT notes: Ambulatory Disposition: Patient admitted to medical unit with pyelonephritis, sepsis, UTI, bacteremia continue with IV antibiotics pending cultures may need a total of 7- 10 days IV ABX therapy. F/U cultures pending Time Spent With Patient Time with patient: 15 - 25 minutes Subjective Date/time seen: 03/01/24 07:27 Interval history: Admission: Medical Record This is a 58 yo female with PMHx significant for COPD/Emphysema, Tobacco dependence. Crohn's disease, T2DM.Patient presents to the emergency room due to several days of chills, night sweats, nausea, vomiting, poor per orally intake, generalized weakness, dizziness. Preliminary workup was significant for urinalysis with numerous WBCs present. Patient has been admitted
--- NOTE | 2024-03-01 07:27 | PM.IMPN ---
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 Has been clinically improving on ceftriaxone but resistant CT abdomen showing right pyelonephritis IV Rocephin changed to meropenem IV fluids Blood cultures 1/2 GNB, repeat cultures today. Urine culture growing ecoli resistant to ceftriaxone Consider PICC like and discharge with a 10 day course to complete with ertapenem if blood cultures growing the same Check orthostatics for report of dizziness, though seems resolved Pyelonephritis/UTI-Improving UA positive for leukocytes nitrates CT abdomen showing right pyelonephritis blood cultures 1/2 growing GNB's. Repeat blood cultures today. Continue daily until negative Change IV Rocephin to meropenem pending cultures IV fluids pain control Bacteremia First set ECOLI positive UTI with ECOLI ESBL switch to meropenem pending cultures Follow-up cultures pending Sinusitis ? Reports chronic nasal drainage ? Hold home Sudafed (discussed rebound congestion when taking regularly) ? Start Cetirizine, Trial of flonase and azelastine Nausea ? Zofran prn Diabetes Accu-Cheks a.c. HS sliding scale insulin hold oral diabetic medications (Mounjaro, Metformin) Diabetic diet encourage lifestyle modifications and weight loss Optimize Blanco inhibitors and statins. Watch for hypoglycemia/hypoglycemic protocol ordered Smoking ? smoking cessation education ? nicotine patch daily ? remove at night HX Vertigo: resumed meclizine HX anxiety: Resumed home medications Code status: Full code per patient DVT prophylaxis: Lovenox Stress ulcer prophylaxis: Protonix 40 daily PT/OT notes: Ambulatory Disposition: Patient admitted to medical unit with pyelonephritis, sepsis, UTI, bacteremia continue with IV antibiotics pending cultures may need a total of 7-10 days IV ABX therapy. F/U cultures pending Time Spent With Patient Time with patient: 15 - 25 minutes Subjective Date/time seen: 03/01/24 07:27 Interval history: Admission: Medical Record This is a 58 yo female with PMHx significant for COPD/Emphysema, Tobacco dependence. Crohn's disease, T2DM.Patient presents to the emergency room due to several days of chills, night sweats, nausea, vomiting, poor per orally intake, generalized weakness, dizziness. Preliminary workup was significant for urinalysis with numerous WBCs present. Patient has been admitted for further evaluation management and treatment. 02/28/2024: Patient with no complaints states pain has improved, afebrile overnight and WBC improving. Did a CT ABD which showed right pyelonephritis. Will continue with IV Rocephin pending cultures. 03/01/2024: assumed Care Patient with e-COLI ESBL and blood cultures Ecoli x 1/2 repeat cultures pending Rocephin switch to meropenem IV pending cultures. Patient with no complaints and reports feeling better today. If IV ABX required will attempt t
[2024-03-01 07:53] VITALS: O2SAT 99
[2024-03-01] MEDS: ALBUTEROL SULFATE (*SP) AEROSOL 1 PUFF 2 PUFF INHALATION (07:53)
[2024-03-01 07:59] LABS: Glucose Point of Care 117 mg/dl (65-105)
[2024-03-01] MEDS: SODIUM CHLORIDE 0.9% IV 1,000 ML 75 ML IV CONT ×2 (09:11→23:33)
[2024-03-01] MEDS: AZELASTINE HCL NASAL 0.1% 137 MCG/SPR 30 ML BTL 1 SPRAY NASAL ×2 (09:14→20:13)
[2024-03-01] MEDS: FLUTICASONE PROPIONATE 0.05% NA SPR 16 GM BTL (*BKC) 1 SPRAY NASAL ×2 (09:14→20:13)
[2024-03-01] MEDS: LORATADINE 10 MG TABLET PO (09:15)
[2024-03-01] MEDS: lisinopriL 10 MG TABLET PO (09:15)
[2024-03-01] MEDS: ENOXAPARIN 40 MG/0.4 ML SYRINGE SUB-Q (09:15)
[2024-03-01] MEDS: PANTOPRAZOLE 40 MG TABLET PO ×2 (09:15→20:12)
[2024-03-01] MEDS: FLUoxetine HCL 20 MG CAPSULE 40 MG PO (09:15)
[2024-03-01] MEDS: MECLIZINE HCL 12.5 MG TABLET PO ×4 (09:15→20:12)
[2024-03-01 12:09] LABS: Glucose Point of Care 116 mg/dl (65-105)
[2024-03-01 14:00] VITALS: BP 138/63; PULSE 80; RESP 16; TEMP 36.4; O2SAT 100
[2024-03-01 16:45] LABS: Glucose Point of Care 104 mg/dl (65-105)
[2024-03-01 22:44] VITALS: BP 157/59; PULSE 78; RESP 16; TEMP 36.4; O2SAT 98
[2024-03-01 23:10] LABS: Glucose Point of Care 104 mg/dl (65-105)
[2024-03-02] MEDS: MEROPENEM 1 GM/NS 100 ML 1 GM/100 ML BAG IVPB ×3 (01:07→17:14)
[2024-03-02 04:24] VITALS: BP 138/52; PULSE 80; RESP 16; TEMP 36.6; O2SAT 100
[2024-03-02 05:59] LABS: Hemoglobin 9.8 g/dL (12.0-15.0); Mean Corpuscular HGB Conc 33.8 g/dl (32-36); Mean Corpuscular Hemoglobin 29.2 pg (26-34); Mean Corpuscular Volume 86.3 fl (80-100); Mean Platelet Volume 10.5 fl (7.4-10.4); Platelet Count Result 223 k/mm3 (150-375); Red Blood Count 3.36 M/mm3 (4.2-5.4); Red Cell Distribution Width 13.2 % (11.5-14.5); White Blood Count 6.9 K/mm3 (4.5-10.0)
[2024-03-02 06:12] LABS: Alanine Aminotransferase 24 U/L (6-35); Albumin Level 2.6 g/dL (3.5-5.1); Alkaline Phosphatase 74 U/L (38-126); Anion Gap 7 mmol/L (4-12); Aspartate Amino Transferase 27 U/L (14-36); Bilirubin,Total 0.2 mg/dL (0.2-1.3); Blood Urea Nitrogen 5 mg/dL (7-17); Calcium 8.5 mg/dL (8.4-10.2); Carbon Dioxide 25 mmol/L (22-30); Chloride 107 mmol/L (98-107); Estimated CRCL calculation 115 ml/min; Estimated Glomerular Filt Rate > 60; Glucose 121 mg/dL (65-110); Potassium 3.4 mmol/L (3.4-5.0); Sodium 139 mmol/L (137-145)
[2024-03-02 08:07] VITALS: BP 163/70; PULSE 78; RESP 16; TEMP 36.4; O2SAT 100
[2024-03-02] MEDS: AZELASTINE HCL NASAL 0.1% 137 MCG/SPR 30 ML BTL 1 SPRAY NASAL ×2 (08:09→21:07)
[2024-03-02] MEDS: FLUoxetine HCL 20 MG CAPSULE 40 MG PO (08:10)
[2024-03-02] MEDS: ENOXAPARIN 40 MG/0.4 ML SYRINGE SUB-Q (08:10)
[2024-03-02] MEDS: lisinopriL 10 MG TABLET PO (08:12)
[2024-03-02] MEDS: FLUTICASONE PROPIONATE 0.05% NA SPR 16 GM BTL (*BKC) 1 SPRAY NASAL ×2 (08:12→21:07)
[2024-03-02] MEDS: MECLIZINE HCL 12.5 MG TABLET PO ×4 (08:13→21:07)
[2024-03-02] MEDS: LORATADINE 10 MG TABLET PO (08:13)
[2024-03-02] MEDS: PANTOPRAZOLE 40 MG TABLET PO ×2 (08:13→21:07)
[2024-03-02 08:14] LABS: Glucose Point of Care 131 mg/dl (65-105)
--- NOTE | 2024-03-02 12:28 | P.PNIM_ITS ---
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 mellitus terminologist insulin use: without custodial use Qualified Code(s): E11.9 - Type 2 diabetes mellitus without complications Code(s): E11.9 - Type 2 diabetes mellitus without complications Status: Acute (6) Vertigo: Code(s): R42 - Dizziness and giddiness Status: Acute (7) Bacteremia: Code(s): R78.81 - Bacteremia Status: Acute Plan Sepsis secondary to UTI-Resolved * febrile 101.5, tachycardia, leukocytosis of 23. Has been clinically improving on ceftriaxone but resistant * CT abdomen showing right pyelonephritis * IV Rocephin changed to meropenem * IV fluids * Blood cultures 1/2 GNB, repeat cultures today. Urine culture growing ecoli res istant to ceftriaxone * Consider PICC like and discharge with a 10 day course to complete with ertapenem if blood cultures growing the same * Check orthostatics for report of dizziness, though seems resolved Pyelonephritis/UTI-Improving * UA positive for leukocytes nitrates * CT abdomen showing right pyelonephritis * blood cultures 1/2 growing GNB's. Repeat blood cultures today. Continue daily until negative * Change IV Rocephin to meropenem pending cultures * IV fluids * pain control Bacteremia * First set ECOLI positive ESBL * UTI with ECOLI ESBL * switch to meropenem pending cultures * Follow-up cultures pending 03/02/2024: * ECOLI ESBL * midline * IV ertapenem * Second set of blood cultures NGTD Sinusitis ? Reports chronic nasal drainage ? Hold home Sudafed (discussed rebound congestion when taking regularly) ? Start Cetirizine, Trial of flonase and azelastine Nausea ? Zofran prn Diabetes * Accu-Cheks a.c. HS * sliding scale insulin * hold oral diabetic medications (Mounjaro, Metformin) * Diabetic diet * encourage lifestyle modifications and weight loss * Optimize Blanco inhibitors and statins. * Watch for hypoglycemia/hypoglycemic protocol ordered Smoking ? smoking cessation education ? nicotine patch daily ? remove at night HX Vertigo: resumed meclizine HX anxiety: Resumed home medications Code status: Full code per patient DVT prophylaxis: Lovenox Stress ulcer prophylaxis: Protonix 40 daily PT/OT notes: Ambulatory Disposition: Patient admitted to medical unit with pyelonephritis, sepsis, UTI, bacteremia continue with IV antibiotics. Will need a head continued outpatient IV antibiotic therapy. Plan for midline placement and discharged on IV ertapenem tomorrow F/U cultures pending Time Spent With Patient Time with patient: 15 - 25 minutes Subjective Date/time seen: 03/02/24 12:28 Interval history: Admission: Medical Record This is a 58 yo female with PMHx significant for COPD/Emphysema, Tobacco dependence. Crohn's disease, T2DM.Patient presents to the emergency room due to several days of chills, night sweats, n
--- NOTE | 2024-03-02 12:28 | PM.IMPN ---
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 mellitus intermediate accountant insulin use: without alf use Qualified Code(s): E11.9 - Type 2 diabetes mellitus without complications Code(s): E11.9 - Type 2 diabetes mellitus without complications Status: Acute (6) Vertigo: Code(s): R42 - Dizziness and giddiness Status: Acute (7) Bacteremia: Code(s): R78.81 - Bacteremia Status: Acute Plan Sepsis secondary to UTI-Resolved febrile 101.5, tachycardia, leukocytosis of 23. Has been clinically improving on ceftriaxone but resistant CT abdomen showing right pyelonephritis IV Rocephin changed to meropenem IV fluids Blood cultures 1/2 GNB, repeat cultures today. Urine culture growing ecoli resistant to ceftriaxone Consider PICC like and discharge with a 10 day course to complete with ertapenem if blood cultures growing the same Check orthostatics for report of dizziness, though seems resolved Pyelonephritis/UTI-Improving UA positive for leukocytes nitrates CT abdomen showing right pyelonephritis blood cultures 1/2 growing GNB's. Repeat blood cultures today. Continue daily until negative Change IV Rocephin to meropenem pending cultures IV fluids pain control Bacteremia First set ECOLI positive ESBL UTI with ECOLI ESBL switch to meropenem pending cultures Follow-up cultures pending 03/02/2024: ECOLI ESBL midline IV ertapenem Second set of blood cultures NGTD Sinusitis ? Reports chronic nasal drainage ? Hold home Sudafed (discussed rebound congestion when taking regularly) ? Start Cetirizine, Trial of flonase and azelastine Nausea ? Zofran prn Diabetes Accu-Cheks a.c. HS sliding scale insulin hold oral diabetic medications (Mounjaro, Metformin) Diabetic diet encourage lifestyle modifications and weight loss Optimize Blanco inhibitors and statins. Watch for hypoglycemia/hypoglycemic protocol ordered Smoking ? smoking cessation education ? nicotine patch daily ? remove at night HX Vertigo: resumed meclizine HX anxiety: Resumed home medications Code status: Full code per patient DVT prophylaxis: Lovenox Stress ulcer prophylaxis: Protonix 40 daily PT/OT notes: Ambulatory Disposition: Patient admitted to medical unit with pyelonephritis, sepsis, UTI, bacteremia continue with IV antibiotics. Will need a head continued outpatient IV antibiotic therapy. Plan for midline placement and discharged on IV ertapenem tomorrow F/U cultures pending Time Spent With Patient Time with patient: 15 - 25 minutes Subjective Date/time seen: 03/02/24 12:28 Interval history: Admission: Medical Record This is a 58 yo female with PMHx significant for COPD/Emphysema, Tobacco dependence. Crohn's disease, T2DM.Patient presents to the emergency room due to several days of chills, night sweats, nausea, vomiting, poor per orally intake, generalized weakness, dizziness. Preliminary workup was significant for urinalysis with numerous WBCs present. Patient has been admitted for further evaluation management and treatment. 02/28/2024: Patient with no complaints states pain has improved, afebrile overnight and WBC improving. Did a CT ABD which showed right pyelonephritis. Will continue with IV Rocephin pending cultures. 03/01/2024: assumed Care Patient with e-COLI ESBL and blood cultures Ecoli x 1/2 repeat c
[2024-03-02 12:48] LABS: Glucose Point of Care 115 mg/dl (65-105)
[2024-03-02 14:00] VITALS: BP 166/77; PULSE 82; RESP 20; TEMP 36.7; O2SAT 99
[2024-03-02] MEDS: SODIUM CHLORIDE 0.9% IV 1,000 ML 75 ML IV CONT (14:23)
[2024-03-02 17:31] LABS: Glucose Point of Care 110 mg/dl (65-105)
[2024-03-02 21:09] LABS: Glucose Point of Care 127 mg/dl (65-105)
[2024-03-02 22:00] VITALS: BP 156/71; PULSE 78; RESP 15; TEMP 37.1; O2SAT 100
[2024-03-03] MEDS: MEROPENEM 1 GM/NS 100 ML 1 GM/100 ML BAG IVPB (02:59)
[2024-03-03] MEDS: SODIUM CHLORIDE 0.9% IV 1,000 ML 75 ML IV CONT (03:25)
[2024-03-03 06:00] VITALS: BP 152/80; PULSE 77; RESP 16; TEMP 37; O2SAT 98
[2024-03-03 06:17] LABS: Hematocrit 28.7 % (37.0-47.0); Hemoglobin 9.5 g/dL (12.0-15.0); Mean Corpuscular HGB Conc 33.1 g/dl (32-36); Mean Corpuscular Hemoglobin 28.1 pg (26-34); Mean Corpuscular Volume 84.9 fl (80-100); Mean Platelet Volume 10.2 fl (7.4-10.4); Platelet Count Result 244 k/mm3 (150-375); Red Blood Count 3.38 M/mm3 (4.2-5.4); White Blood Count 7.2 K/mm3 (4.5-10.0)
[2024-03-03 06:56] LABS: Alanine Aminotransferase 21 U/L (6-35); Albumin Level 2.7 g/dL (3.5-5.1); Alkaline Phosphatase 75 U/L (38-126); Anion Gap 7 mmol/L (4-12); Aspartate Amino Transferase 23 U/L (14-36); Bilirubin,Total 0.2 mg/dL (0.2-1.3); Blood Urea Nitrogen 4 mg/dL (7-17); Calcium 8.4 mg/dL (8.4-10.2); Carbon Dioxide 27 mmol/L (22-30); Chloride 106 mmol/L (98-107); Estimated CRCL calculation 115 ml/min; Estimated Glomerular Filt Rate > 60; Glucose 119 mg/dL (65-110); Sodium 140 mmol/L (137-145)
[2024-03-03] MEDS: ENOXAPARIN 40 MG/0.4 ML SYRINGE SUB-Q (08:11)
[2024-03-03 08:15] VITALS: BP 158/82; PULSE 82; RESP 16; O2SAT 99
[2024-03-03 08:18] LABS: Glucose Point of Care 139 mg/dl (65-105)
[2024-03-03] MEDS: PANTOPRAZOLE 40 MG TABLET PO (08:20)
[2024-03-03] MEDS: lisinopriL 10 MG TABLET PO (08:20)
[2024-03-03] MEDS: FLUoxetine HCL 20 MG CAPSULE 40 MG PO (08:20)
[2024-03-03] MEDS: MECLIZINE HCL 12.5 MG TABLET PO (08:20)
[2024-03-03] MEDS: LORATADINE 10 MG TABLET PO (08:21)
[2024-03-03] MEDS: AZELASTINE HCL NASAL 0.1% 137 MCG/SPR 30 ML BTL 1 SPRAY NASAL (08:21)
[2024-03-03] MEDS: FLUTICASONE PROPIONATE 0.05% NA SPR 16 GM BTL (*BKC) 1 SPRAY NASAL (08:22)
[2024-03-03] MEDS: LIDOCAINE HCL 1% LOCAL INJ 2 ML AMPUL 5 ML INFILTRATE (09:15)
--- NOTE | 2024-03-03 11:01 | P.DS_ITS ---
DS: Admitting Diagnosis Discharge Date 03/03/2024 Admitting Diagnosis pyelonephritis/ bacteremia DS: Discharge Diagnosis Discharge Diagnosis (1) UTI (urinary tract infection): Code(s): N39.0 - Urinary tract infection, site not specified Status: Acute (2) Pyelonephritis: Code(s): N12 - Tubulo-interstitial nephritis, not specified as acute or chronic Status: Acute (3) Sepsis without septic shock: Code(s): A41.9 - Sepsis, unspecified organism Status: Acute (4) Tobacco dependence: Code(s): F17.200 - Nicotine dependence, unspecified, uncomplicated Status: Acute (5) Type 2 diabetes mellitus without complications: Qualifiers: Diabetes mellitus senior care insulin use: without senior care use Qualified Code(s): E11.9 - Type 2 diabetes mellitus without complications Code(s): E11.9 - Type 2 diabetes mellitus without complications Status: Acute (6) Vertigo: Code(s): R42 - Dizziness and giddiness Status: Acute (7) Bacteremia: Code(s): R78.81 - Bacteremia Status: Acute Plan Sepsis secondary to UTI-Resolved * febrile 101.5, tachycardia, leukocytosis of 23. Has been clinically improving on ceftriaxone but resistant * CT abdomen showing right pyelonephritis * IV Rocephin changed to meropenem * IV fluids * Blood cultures 1/2 GNB, repeat cultures today. Urine culture growing ecoli resistant to ceftriaxone * Consider PICC like and discharge with a 10 day course to complete with ertapenem if blood cultures growing the same * Check orthostatics for report of dizziness, though seems resolved Pyelonephritis/UTI-Improving * UA positive for leukocytes nitrates * CT abdomen showing right pyelonephritis * blood cultures 1/2 growing GNB's. Repeat blood cultures today. Continue daily until negative * Change IV Rocephin to meropenem pending cultures * IV fluids * pain control Bacteremia * First set ECOLI positive ESBL * UTI with ECOLI ESBL * switch to meropenem pending cultures * Follow-up cultures pending 03/02/2024: * ECOLI ESBL * midline * IV ertapenem * Second set of blood cultures NGTD Sinusitis ? Reports chronic nasal drainage ? Hold home Sudafed (discussed rebound congestion when taking regularly) ? Start Cetirizine, Trial of flonase and azelastine Nausea ? Zofran prn Diabetes * Accu-Cheks a.c. HS * sliding scale insulin * hold oral diabetic medications (Mounjaro, Metformin) * Diabetic diet * encourage lifestyle modifications and weight loss * Optimize Blanco inhibitors and statins. * Watch for hypoglycemia/hypoglycemic protocol ordered Smoking ? smoking cessation education ? nicotine patch daily ? remove at night HX Vertigo: resumed meclizine HX anxiety: Resumed home medications Disposition: tient discharged home with midline on 6 more days of IV ertapenem. DS: Summary Hospital Course Reason for hospitalization: pyelonephritis/ bacteremia Hospital Course: Interval history: Admission: Medical Record This is a 58 yo female with PMHx significant for COPD/Emphysema, Tobacco dependence. Crohn's disease, T2DM.Patient presents to the emergency room due to several days of chills, night sweats, nausea, vomiting, poor per orally intake, generalized weakness, dizziness. Preliminary workup was significant for urinalysis with numerous WBCs present. Patient has been admitted for further evalua
--- NOTE | 2024-03-03 11:01 | PM.DS ---
DS: Admitting Diagnosis Discharge Date 03/03/2024 Admitting Diagnosis pyelonephritis/ bacteremia DS: Discharge Diagnosis Discharge Diagnosis (1) UTI (urinary tract infection): Code(s): N39.0 - Urinary tract infection, site not specified Status: Acute (2) Pyelonephritis: Code(s): N12 - Tubulo-interstitial nephritis, not specified as acute or chronic Status: Acute (3) Sepsis without septic shock: Code(s): A41.9 - Sepsis, unspecified organism Status: Acute (4) Tobacco dependence: Code(s): F17.200 - Nicotine dependence, unspecified, uncomplicated Status: Acute (5) Type 2 diabetes mellitus without complications: Qualifiers: Diabetes mellitus snf insulin use: without snf use Qualified Code(s): E11.9 - Type 2 diabetes mellitus without complications Code(s): E11.9 - Type 2 diabetes mellitus without complications Status: Acute (6) Vertigo: Code(s): R42 - Dizziness and giddiness Status: Acute (7) Bacteremia: Code(s): R78.81 - Bacteremia Status: Acute Plan Sepsis secondary to UTI-Resolved febrile 101.5, tachycardia, leukocytosis of 23. Has been clinically improving on ceftriaxone but resistant CT abdomen showing right pyelonephritis IV Rocephin changed to meropenem IV fluids Blood cultures 1/2 GNB, repeat cultures today. Urine culture growing ecoli resistant to ceftriaxone Consider PICC like and discharge with a 10 day course to complete with ertapenem if blood cultures growing the same Check orthostatics for report of dizziness, though seems resolved Pyelonephritis/UTI-Improving UA positive for leukocytes nitrates CT abdomen showing right pyelonephritis blood cultures 1/2 growing GNB's. Repeat blood cultures today. Continue daily until negative Change IV Rocephin to meropenem pending cultures IV fluids pain control Bacteremia First set ECOLI positive ESBL UTI with ECOLI ESBL switch to meropenem pending cultures Follow-up cultures pending 03/02/2024: ECOLI ESBL midline IV ertapenem Second set of blood cultures NGTD Sinusitis ? Reports chronic nasal drainage ? Hold home Sudafed (discussed rebound congestion when taking regularly) ? Start Cetirizine, Trial of flonase and azelastine Nausea ? Zofran prn Diabetes Accu-Cheks a.c. HS sliding scale insulin hold oral diabetic medications (Mounjaro, Metformin) Diabetic diet encourage lifestyle modifications and weight loss Optimize Blanco inhibitors and statins. Watch for hypoglycemia/hypoglycemic protocol ordered Smoking ? smoking cessation education ? nicotine patch daily ? remove at night HX Vertigo: resumed meclizine HX anxiety: Resumed home medications Disposition: tient discharged home with midline on 6 more days of IV ertapenem. DS: Summary Hospital Course Reason for hospitalization: pyelonephritis/ bacteremia Hospital Course: Interval history: Admission: Medical Record This is a 58 yo female with PMHx significant for COPD/Emphysema, Tobacco dependence. Crohn's disease, T2DM.Patient presents to the emergency room due to several days of chills, night sweats, nausea, vomiting, poor per orally intake, generalized weakness, dizziness. Preliminary workup was significant for urinalysis with numerous WBCs present. Patient has been admitted for further evaluation management and treatment. 02/28/2024: Patient with no complaints states pain has improved, afebrile overnight and WBC improving. Did a CT ABD which showed right pyelonephritis. Will continue with IV Rocephin pending cultures. 03/01/2024: assumed Care Patient with e-COLI ESBL and blood cultures Ecoli x 1/2 repeat cultures pending Rocephin switch to meropenem IV pending cultures. Patient with no complaints and reports feeling better today. If IV ABX required will attempt to place midline and set-up at IV ABX. 03/02/2024: P
[2024-03-03] MEDS: ERTAPENEM 1 GM/NS 50 ML 1 GM/50 ML BAG IVPB (11:47)
[2024-03-03 12:07] LABS: Glucose Point of Care 92 mg/dl (65-105)
== END 2024-03-03 13:35 | disposition home or self-care (01) | DRG 872 ==
LOC: ANHED 21:34 → ANH2MED 22:09
PROVIDERS: Nurse Practitioner Acute Care; Admitting Provider Internal Medicine; Emergency Provider Emergency Medicine; PCP Family Medicine; Visit Provider Nurse Practitioner Family
DX: A41.9 Sepsis, unspecified organism (principal); N12 Tubulo-interstitial nephritis, not specified as acute or chronic; Z16.12 Extended spectrum beta lactamase (ESBL) resistance; K50.90 Crohn's disease, unspecified, without complications; B96.20 Unspecified Escherichia coli [E. coli] as the cause of diseases classified elsewhere; E78.2 Mixed hyperlipidemia; E11.9 Type 2 diabetes mellitus without complications; F41.9 Anxiety disorder, unspecified; F17.290 Nicotine dependence, other tobacco product, uncomplicated; J43.9 Emphysema, unspecified; Z79.84 Long term (current) use of oral hypoglycemic drugs; Z79.85 Long-term (current) use of injectable non-insulin antidiabetic drugs
CPT/HCPCS: 36415; 36569; 71045; 74176; 80053; 81001; 82948; 83690; 85025; 85027; 87040; 87077; 87086; 87088; 87186; 94640; 96361; 96365; 96366; 96374; 96375; 99285; A9270; G0378; J0696; J1335; J1650; J2185; J2405; J7030

== ENCOUNTER 2024-04-01 15:47 | Inpatient (IN) | payer BC, SELFPAY ==
[2024-04-01] VITALS (16 sets, daily range): BP systolic 98–131; BP diastolic 47–86; PULSE 75–89; RESP 14–24; TEMP 36.5–36.6; O2SAT 94–100; BMI 29.5
--- NOTE | ~2024-04-01 | CT_ITS ---
EXAMINATION: CTA brain carotid DATE: 04/03/2024 16:30 INDICATION: syncope and collapse and diabetes mellitus TECHNIQUE: Computed tomographic angiography (CTA) of the head was performed without and with 100 mL O mnipaque-350 intravenous contrast. CTA of the neck was performed with intravenous contrast. Automated exposure control and iterative reconstruction technique were employed. The dose-length product was 1 605.61 mGy-cm. Maximum intensity projection and volume rendered 3D-reconstructions were created by gail sung technologist on a separate workstation. COMPARISON: Ultrasound carotid 04/02/2024; CT brain 04/01/2024; MRI brain 02/21/2024 FINDINGS: CT BRAIN: No acute large vessel infarct, intracranial hemorrhage, mass, or hydrocephalus. Mild intracranial art erial atherosclerotic calcifications in the cavernous portions of the bilateral internal carotid mary geetha. CTA HEAD: No large vessel occlusion, aneurysm, high flow vascular malformation, nidus or extravasation. CTA NECK: Aortic arch and proximal great vessels: Normal arch anatomy. Mild arch calcification. Right common carotid, carotid bifurcation, and internal carotid artery: No plaque.There is 0% stenosi s of the proximal right internal carotid artery relative to normal distal artery lumen diameter (NASC ET criteria). Left common carotid, carotid bifurcation, and internal carotid artery: Minimal calcified plaque.There is 0% stenosis of the proximal left internal carotid artery relative to normal distal artery lumen d iameter (NASCET criteria). Vertebral arteries: No significant plaque or stenosis. Left vertebral artery is dominant. Other findings: Cervical spondylosis. Subcentimeter thyroid hypodensities that require no additional evaluation at this time.. IMPRESSION: No acute intracranial process. No large vessel intracranial occlusion, high-grade intracranial stenosis, or aneurysm. No carotid or vertebral artery occlusion, dissection, or significant stenosis. Reviewed, dictated and finalized at location K. IMPRESSION: No acute intracranial process. No large vessel intracranial occlusion, high-grade intracranial stenosis, or an eurysm. No carotid or vertebral artery occlusion, dissection, or significant stenosis.
--- NOTE | ~2024-04-01 | CT_ITS ---
EXAMINATION: CT brain wo con DATE: 04/01/2024 16:12 INDICATION: Fall with head injury and loss of consciousness TECHNIQUE: Computed tomography (CT) of the head was performed without intravenous contrast. Sagittal and coronal reconstructions were performed. The mA was adjusted according to patient size. Iterative reconstruction technique was employed. The dose-length product was 605.33 mGy-cm. COMPARISON: head CT dated 02/21/24 FINDINGS: No fracture. No acute intracranial hemorrhage, acute infarction or abnormal extra axial fluid collect ion. Ventricles are normal and symmetric. No mass/mass effect. The orbits, paranasal sinuses and mast oid air cells are normal. IMPRESSION: 1. Normal head CT. Reviewed, dictated and finalized at location A. IMPRESSION: 1. Normal head CT.
--- NOTE | ~2024-04-01 | CT_ITS ---
CT cervical spine wo con Ordering provider: Yovani Smith APRN History: . fall . Comparison: None. Technique: CT of the cervical spine was performed without contrast. Sagittal and coronal reformatted images were also obtained and reviewed. Automated exposure control and iterative reconstruction nohemy hnique were employed. The dose-length product was 605.33 mGy-cm. FINDINGS: VERTEBRAE: Linear hypodensity in the tip of the spinous process of C7 suggestive of a fracture. Clini francisca correlation for tenderness is advised. Otherwise, no acute fracture. No subluxation. The occipita l condyles are intact. Degenerative changes of the spine. DISC SPACES: Normal. PARASPINOUS SOFT TISSUES: Normal. IMPRESSION: Highly suggestive fracture in the tip of the spinous process of C7. Otherwise, No acute osseous abnor mality cervical spine. Reviewed, dictated and finalized at location A. IMPRESSION: Highly suggestive fracture in the tip of the spinous process of C7. Otherwise, No acute osseous abnormality cervical spine.
--- NOTE | ~2024-04-01 | XR_ITS ---
XR elbow LT min 3V Ordering provider: Yovani Smith APRN History: . fall . Comparison: None. FINDINGS: BONES: No definite acute fracture or dislocation. Elevation of the anterior fat pad which may indicat e a fracture in the area of the elbow. Follow-up advised. JOINT SPACES: Normal. SOFT TISSUES: Soft tissue swelling seen posteriorly. Laceration seen posterior to the elbow. No defin ite joint effusion. IMPRESSION: No definite acute osseous abnormality left elbow. Elevation of the anterior fat pad is seen which may indicate a subtle fracture in the area. Follow-up advised Reviewed, dictated and finalized at location A. IMPRESSION: No definite acute osseous abnormality left elbow. Elevation of the anterior fat pad is seen which may indicate a subtle fracture in the area. Follow-up advise d
--- NOTE | ~2024-04-01 | MR_ITS ---
EXAMINATION: MR elbow LT wo con DATE: 04/02/2024 12:20 INDICATION: Left elbow injury. TECHNIQUE: Magnetic resonance imaging (MRI) of the left elbow was performed without intravenous contr ast. Sequences included coronal, axial, and sagittal PD-weighted FS FSE and coronal, axial, and sagit jacobo PD-weighted FSE. COMPARISON: Radiographs 04/01/2024 FINDINGS: Osseous/other: Alignment is normal. No fracture. There is edema-like marrow signal intensity in proximal olecranon, consistent with contusion. There is partial-thickness cartilage loss in the elbow joint. Tendons: Brachialis tendon and biceps tendon are normal. There is mild triceps tendinopathy. The common flexor tendon and common extensor tendon are normal. Ligaments: Radial collateral ligament, lateral ulnar collateral ligament, and ulnar collateral ligament are norm al. Cubital tunnel: There is increased signal in the ulnar nerve, consistent with neuropathy. Fluid: There is an elbow joint effusion. There is subcutaneous edema and hematoma posteriorly. There is celia a in some of the muscles with a posterior predominance. IMPRESSION: 1. Contusion of proximal olecranon. 2. Subcutaneous edema and hematoma posteriorly. Edema in some of the muscles with a posterior predomi nance may be contusions and/or mild strains. 3. Elbow joint effusion. Reviewed, dictated and finalized at location A. IMPRESSION: 1. Contusion of proximal olecranon. 2. Subcutaneous edema and hematoma posteriorly. Edema in some of the muscles wi th a posterior predominance may be contusions and/or mild strains. 3. Elbow joint effusion.
--- NOTE | ~2024-04-01 | US_ITS ---
EXAMINATION: US carotid duplex BI DATE: 04/02/2024 15:28 INDICATION: Syncope TECHNIQUE: Grayscale, color Doppler, and pulsed Doppler images of the cervical carotid arteries were obtained. The degree of vessel stenosis is placed in one of the following categories: normal, <50%, 5 0-69%, >=70% but less than near-occlusion, near-occlusion, or total occlusion. Note that percent sten osis relative to normal distal artery lumen diameter is indirectly measured from velocity measurement s as described by Bonilla, et al. Radiology 2003; 229:340-346. Notes: Normal: Peak systolic velocity <125 centimeters/sec and no plaque <50%. Peak systolic velocity <125 ( EDV <40; ICA/CCA PSV ratio <2.0; used these factors only a tandem lesions or low cardiac output or co ntralateral disease) 50-69 %: PSV 125-230 (EDV 40-100; ratio 2-4) >= 70% but less than near occlusion: PSV greater than 230 (EDV > 100; ratio> 4.0) Near Occlusion: PSV that is variable; markedly narrowed lumen Occlusion: Absent flow on color/spectral Doppler and no lumen on ledbetter scale. COMPARISON: None. FINDINGS: RIGHT: The right common carotid artery (CCA) peak systolic velocity (PSV) is 69 cm/s. The right internal car otid artery (ICA) PSV is 94 cm/s. The right ICA end-diastolic velocity (EDV) is 32 cm/s. The right IC A/CCA PSV ratio is 1.. The external carotid artery (ECA) PSV is 114 cm/s. There is antegrade flow in the right vertebral artery. LEFT: The left CCA PSV is 87 cm/s. The left ICA PSV is 94 cm/s. The left ICA EDV is 30 cm/s. The left ICA/C CA PSV ratio is 1.1. The ECA PSV is 112 cm/s. There is antegrade flow in the left vertebral artery. IMPRESSION: 1. Less than 50% stenosis in the right internal carotid artery by sonographic criteria. 2. Less than 50% stenosis in the left internal carotid artery by sonographic criteria. Reviewed, dictated and finalized at location B. IMPRESSION: 1. Less than 50% stenosis in the right internal carotid artery by sonographic raad rodriguez. 2. Less than 50% stenosis in the left internal carotid artery by sonographic jw ravi.
--- NOTE | 2024-04-01 18:16 | ECG_ITS ---
Test Date: 2024-04-01 18:20:12 Measurements Intervals Phelps Rate: 79 P: 49 MT: 146 QRS: -14 QRSD: 89 T: 58 QT: 380 QTc: 436 Interpretive Statements SINUS RHYTHM No previous ECG available for comparison Electronically Signed On 04-02-2024 15:52:25 CDT by Gilles Durant M.D.
[2024-04-01 18:29] LABS: Basophils Percent Auto 0.3 % (0.2-1.2); Eosinophils Absolute Auto 0.2 K/mm3 (0-0.3); Eosinophils Percent Auto 1.3 % (0-4.4); Hematocrit 38.4 % (37.0-47.0); Hemoglobin 12.6 g/dL (12.0-15.0); Immature Granulocyte Absolute 0.14 K/mm3 (0.00-0.031); Lymphocytes Absolute Auto 2.81 K/mm3 (0.9-3.2); Lymphocytes Percent Auto 19.1 % (18.3-44.2); Mean Corpuscular HGB Conc 32.8 g/dl (32-36); Mean Corpuscular Hemoglobin 28.4 pg (26-34); Mean Corpuscular Volume 86.7 fl (80-100); Mean Platelet Volume 10.6 fl (7.4-10.4); Monocytes Absolute Auto 0.8 K/mm3 (0.1-0.6); Monocytes Percent Auto 5.5 % (2.6-8.5); Neutrophils Absolute Auto 10.7 K/mm3 (1.3-6.7); Neutrophils Percent Auto 72.8 % (45.5-73.1); Platelet Count Result 300 k/mm3 (150-375); Red Blood Count 4.43 M/mm3 (4.2-5.4); White Blood Count 14.7 K/mm3 (4.5-10.0)
[2024-04-01 18:40] LABS: Alanine Aminotransferase 13 U/L (6-35); Albumin Level 4.4 g/dL (3.5-5.1); Alkaline Phosphatase 79 U/L (38-126); Anion Gap 14 mmol/L (4-12); Aspartate Amino Transferase 21 U/L (14-36); Bilirubin,Total 0.4 mg/dL (0.2-1.3); Blood Urea Nitrogen 26 mg/dL (7-17); Calcium 10.3 mg/dL (8.4-10.2); Carbon Dioxide 18 mmol/L (22-30); Chloride 103 mmol/L (98-107); Estimated CRCL calculation 33 ml/min; Estimated Glomerular Filt Rate 29; Glucose 111 mg/dL (65-110); Potassium 4.5 mmol/L (3.4-5.0); Sodium 135 mmol/L (137-145)
[2024-04-01 18:50] LABS: Troponin I < 0.012 ng/mL (0.000-0.034)
--- NOTE | 2024-04-01 19:28 | ED.GENADULT ---
HPI - General Adult General Chief complaint: Fall Stated complaint: fall busted my head again Time Seen by Provider: 04/01/24 19:06 History of Present Illness HPI narrative: Patient is a 58-year-old female who presents emergency department with chief complaint of syncope. Patient reports that she stood up and passed out the patient reports that she was hospitalized about a month ago treated with IV antibiotics for bacteremia and since then she has been getting lightheaded and feels as though she is going to black out when she stands up today she stood up. And fell to the ground patient reports that she has mild headache and reports that she has pain in her left elbow. Related Data Home Medications Medication Instructions Recorded Confirmed albuterol sulfate 90 mcg/actuation 2 inhalation inhalation Q4H 08/03/19 03/10/24 aerosol inhaler (ProAir HFA) fluoxetine 40 mg capsule 40 mg PO DAILY 02/27/24 03/10/24 omeprazole 40 mg capsule,delayed 40 mg PO BID PRN gerd 02/27/24 03/10/24 release pseudoephedrine HCl 120 mg 120 mg PO Q12H 02/27/24 03/10/24 tablet,extended release ([employer] [facility]) tirzepatide 7.5 mg/0.5 mL 7.5 mg subcut WEEKLY 02/27/24 03/10/24 subcutaneous pen injector (Garry) Allergies Allergy/AdvReac Type Severity Reaction Status Date / Time Tetanus Vaccines and Toxoid Allergy Unknown Unknown Verified 03/10/24 17:18 metformin AdvReac Severe GI issues Verified 03/10/24 17:18 Review of Systems Review of Systems: A 10 system review of systems was completed on the patient and is negative except for what is stated in the HPI. Nursing and ancillary documentation was reviewed. [facility] Past Medical History Medical History Abscess of scalp Concussion Crohn's disease in remission Depression with anxiety Essential (primary) hypertension Mixed hyperlipidemia Type 2 diabetes mellitus without complications Wellness examination Family History Family History Sibling Family history of diabetes mellitus in first degree relative Malignant neoplasm of prostate Father Family history of heart disease in male family member before age 55 Mother Cerebrovascular accident Blood clot in vein Alzheimer disease Other Hypertension Social History Social History Smoking status: Current every day smoker Tobacco type: e-cigarettes/vaping Second hand tobacco smoke exposure: No Smoking end date: 08/13/96 Additional smoking assessment comments: daily Alcohol intake: never Substance use: current Substance use type: marijuana Other substance usage details: nightly Do You Feel Safe in your Home?: Yes Lack of Transportation: No Lack of Food: Never True Current Housing: I Have Housing Concerned About Future Housing: No Difficulty Paying Gas/Electric Bills: No Difficulty Paying for Meds: YES Currently Unemployed: No Education: Trade/Vocational Certificate Difficulty w/ Childcare or Family Care: No Living arrangements: with family Occupation/Education: occupation 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 HEAD: Normocephalic, atraumatic. EYES: PERRLA and EOMI. ENT: Nares clear, no rhinorrhea or epistaxis. Mucous membranes moist. NECK: Supple. CHEST: Clear to auscultation. No respiratory distress. HEART: Regular rate and rhythm. No murmur heard. Normal peripheral pulses. ABDOMEN: Soft, nontender, nondistended, normal active bowel sounds. EXTREMITIES: Normal range of motion in all extremities except for left elbow. There is swelling of the left elbow small abrasion and bruising present to the elbow.. No edema. SKIN: Warm, dry, no rash. NEURO: No fo
[2024-04-01] MEDS: MORPHINE SULFATE (*CRX) 4 MG/ML INJ IV PUSH (19:30)
[2024-04-01] MEDS: SODIUM CHLORIDE 0.9% IV 1,000 ML 999 ML IV CONT ×2 (19:42→20:53)
[2024-04-01 20:57] LABS: Add Urine Microscopic? YES; Appearance Urine Clear (Clear); Bacteria Urine None Seen /hpf; Bilirubin Urine Negative (Negative); Blood Urine Negative (Negative); Calcium Oxalate Crystals Urine Present /hpf; Color Urine Yellow (Yellow); Glucose Urine UA Negative (Negative); Ketones Urine 1+ mg/dL (Negative); Leukocyte Esterase Ur Trace LEU/UL (Negative); Mucus Urine Present /lpf; Need Manual Microscopic Reviewed; Nitrate Urine Negative (Negative); Non Pathogenic Casts >20; Protein Urine Negative (Negative); RBC Urine 0-2 /hpf (0-2); Squamous Epithelial Cell Urine Occasional /hpf (Few); Urobilinogen Urine 0.2 mg/dL (<2.0)
[2024-04-01] MEDS: SODIUM CHLORIDE 0.9% IV 1,000 ML 150 ML IV CONT (22:05)
[2024-04-01 22:06] LABS: Glucose Point of Care 100 mg/dl (65-105)
[2024-04-02] VITALS (14 sets, daily range): BP systolic 99–139; BP diastolic 48–66; PULSE 71–83; RESP 16–18; TEMP 36.6–37; O2SAT 98–100
--- NOTE | 2024-04-02 | ECHO_ITS ---
Patient Info Name: Ann Viera Age: 58 years : 1965 Gender: Female Ht: 67 in Wt: 188 lbs BSA: 2.03 m2 HR: 76 bpm BP: 108 / 48 mmHg Heart Rhythm: Sinus Rhythm Technical Quality: Fair Exam Date: 04/02/2024 4:27 PM Exam Location: Echo Lab Patient Status: Outpatient Admit Date: 04/01/2024 Staff Ordering Physician: Shilpi Carty APRN Motion Designer: Gaviota Rao RDCS Attending Provider: Shilpi Carty APRN Referring Physician: Carloz CRYSTAL; Exam Type: CA echo doppler color flow Study Info Indications R55 - Syncope and collapse Complete two-dimensional, color flow and Doppler transthoracic echocardiogram is performed. Summary 1. Left ventricular chamber dimension is normal. 2. Left ventricular systolic function is normal, estimated at 60-65%. 3. The left ventricular diastolic function is grade I diastolic dysfunction. 4. Right ventricular systolic function is normal. 5. Left atrial chamber dimension is mildly enlarged. 6. There is mild aortic valve regurgitation. 7. There is mild mitral valve regurgitation. 8. There is mild tricuspid valve regurgitation. Left Ventricle Left ventricular chamber dimension is normal. Left ventricular systolic function is normal, estimated at 60-65%. There is no increased left ventricular wall thickness. The left ventricular diastolic function is grade I diastolic dysfunction. Right Ventricle Right ventricular chamber dimension is normal. Right ventricular systolic function is normal. Left Atria Left atrial chamber dimension is mildly enlarged. Right Atria Right atrial chamber dimension is normal. Atrial Septum Intact interatrial septum visualized by color flow imaging. Aortic Valve The aortic valve is trileaflet. There is no aortic valve stenosis. There is mild aortic valve regurgitation. Pulmonic Valve The pulmonic valve is not well visualized. There is trace pulmonic regurgitation. Mitral Valve There is mild mitral valve regurgitation. The mitral valve annulus is mildly calcified. Tricuspid Valve There is mild tricuspid valve regurgitation. Pericardium/Pleural There is no pericardial effusion. Inferior Vena Cava Normal inferior vena cava with >50% collapse upon inspiration consistent with normal right atrial pressure, 3 mmHg. Aorta The aortic root size at the sinus of Valsalva is normal. Left Ventricular Outflow Tract Name Value Normal LVOT 2D LVOT Diameter 2.1 cm LVOT Doppler LVOT Peak Gradient 4 mmHg LVOT Mean Gradient 2 mmHg LVOT VTI 21 cm LVOT VTI/AV VTI Ratio 0.7 LVOT Stroke Volume 70 ml LVOT CO 4.7 l/min LVOT CI 2.3 l/min/m2 Pulmonic Valve Name Value Normal PV Doppler PV Peak Gradient 5 mmHg PV Regurgitation Doppler
--- NOTE | 2024-04-02 00:17 | PM.IMHP ---
H&P: HPI History of Present Illness Date/Time: 04/01/24 2300 Chief Complaint: Falling due to lightheadedness Narrative: 58-year-old female with a past medical history of diabetes, peripheral neuropathy, GERD, restless leg syndrome and recent hospitalization for E coli bacteremia who presented to the ER after having a fall. She reports that she has had intermittent episodes of lightheadedness with position changes on going for numerous months. However these episodes became more frequent just prior to her hospital stay recently for bacteremia. Her symptoms had improved after os bull is a barrett but are still occurring at least a couple of times a week. 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 She reports today when she went to stand up she noticed everything was going bright in that if she did not sit down she was going to pass out. Before she could sit down she fell and hit her head as a result. She briefly lost consciousness. Upon waking patient had left elbow pain. She reports that she does not know why she is lightheaded like this. She does drink plenty of water she intentionally drinks at least 80-100 oz of water a day. She reports a fairly good appetite. She has not had any nausea, vomiting, diarrhea or urinary symptoms. She denies any cough or congestion. She has not had any recent medication changes. She passed out prior to her prior hospitalization and struck her head resulting in a concussion. She denies any frequent headaches, mental fog or visual changes. She feels her concussion symptoms have resolved. [facility]LY [facility] Past Medical History Medical History (Updated 04/02/24 @ 01:11 by Joanna Cade DO) Allergic rhinitis Anxiety and depression Asthma B12 deficiency Concussion (12/2023) Crohn's disease in remission Depression with anxiety Diabetic peripheral neuropathy Essential (primary) hypertension GERD (gastroesophageal reflux disease) Hemorrhoids Mixed hyperlipidemia Restless leg syndrome Type 2 diabetes mellitus Vitamin D deficiency Surgical History Surgical History (Updated 04/02/24 @ 00:53 by Joanna Cade DO) History of appendectomy History of hysterectomy History of partial colectomy 1/3 of large bowel resected Family History Family History Sibling Leukemia Sister at 3 years old Diabetes mellitus Malignant neoplasm of prostate Father , in his 70s Alzheimer disease Acute myocardial infarction Mother , At age 91 Alzheimer disease Blood clot in vein Cerebrovascular accident CHF (congestive heart failure) Other Hypertension Social History Social History (Updated 04/02/24 @ 00:57 by Joanna Cade DO) Social History: Patient reports that she has been since 1990. She lives with her and their only son. She smoked 2 packs per day but quit in the mid . She occasionally uses marijuana gummy for sleep. She does not drink alcohol of any significant amount. 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 Code status: Full code (patient would not want long-term tracheostomy or feeding tube) Surrogate decision maker: Smoking packs per day: 2 Smoking cigarettes per day: 40.0 Years smoked: 33 Smoking pack-years: 66.00 Smoking status: Former smoker Tobacco type: cigarettes and e-cigarettes/vaping Second hand tobacco smoke exposure: No Smoking end date: 08/13/96 Alcohol intake: never Substance use: current Substance use type: marijuana Other substance usage details: marijuana gummy at HS to assist with sleep Do You Feel Safe in your Home?: Yes Lack of Transportation: No Lack of Food: Never True Current Housing: I Have Housing Concerned About Future Housing: No Difficulty Paying Gas/Electric Bills: No Difficulty Paying for Meds: YES
[2024-04-02] MEDS: HYDROcodone/acetaminophen (*CRX) 5-325 MG TABLET 1 TAB PO (00:48)
[2024-04-02] MEDS: SODIUM CHLORIDE 0.9% IV 1,000 ML 999 ML IV CONT (02:12)
[2024-04-02] MEDS: FLUoxetine HCL 20 MG CAPSULE 40 MG PO ×2 (02:12→20:05)
[2024-04-02] MEDS: rOPINIRole HCL 1 MG TABLET PO ×2 (02:12→20:05)
[2024-04-02 04:58] LABS: Basophils Absolute Auto 0.1 K/mm3 (0.0-0.1); Basophils Percent Auto 0.4 % (0.2-1.2); Eosinophils Absolute Auto 0.3 K/mm3 (0-0.3); Eosinophils Percent Auto 2.4 % (0-4.4); Hematocrit 32.1 % (37.0-47.0); Hemoglobin 10.2 g/dL (12.0-15.0); Immature Granulocyte Absolute 0.08 K/mm3 (0.00-0.031); Immature Granulocyte Percent A 0.7 % (0-0.5); Lymphocytes Absolute Auto 3.18 K/mm3 (0.9-3.2); Lymphocytes Percent Auto 27.7 % (18.3-44.2); Mean Corpuscular HGB Conc 31.8 g/dl (32-36); Mean Corpuscular Hemoglobin 27.9 pg (26-34); Mean Corpuscular Volume 87.7 fl (80-100); Mean Platelet Volume 11.1 fl (7.4-10.4); Monocytes Absolute Auto 0.9 K/mm3 (0.1-0.6); Monocytes Percent Auto 7.7 % (2.6-8.5); Neutrophils Percent Auto 61.1 % (45.5-73.1); Platelet Count Result 225 k/mm3 (150-375); Red Blood Count 3.66 M/mm3 (4.2-5.4); Red Cell Distribution Width 13.8 % (11.5-14.5); White Blood Count 11.5 K/mm3 (4.5-10.0)
[2024-04-02 05:07] LABS: Anion Gap 8 mmol/L (4-12); Blood Urea Nitrogen 20 mg/dL (7-17); Carbon Dioxide 17 mmol/L (22-30); Chloride 111 mmol/L (98-107); Estimated CRCL calculation 60 ml/min; Estimated Glomerular Filt Rate 57; Glucose 99 mg/dL (65-110); Potassium 3.8 mmol/L (3.4-5.0); Sodium 136 mmol/L (137-145)
[2024-04-02] MEDS: SODIUM CHLORIDE 0.9% IV 1,000 ML 150 ML IV CONT (06:26)
[2024-04-02 07:33] LABS: Glucose Point of Care 98 mg/dl (65-105)
[2024-04-02] MEDS: CHOLECALCIFEROL 1,000 UNITS TABLET 1000 UNITS PO (08:22)
[2024-04-02] MEDS: ENOXAPARIN 40 MG/0.4 ML SYRINGE SUB-Q (08:23)
[2024-04-02] MEDS: AZELASTINE HCL NASAL 0.1% 137 MCG/SPR 30 ML BTL 1 SPRAY NASAL ×2 (08:23→20:05)
[2024-04-02] MEDS: CYANOCOBALAMIN 1,000 MCG TABLET 1000 MCG PO (08:23)
--- NOTE | 2024-04-02 08:44 | PM.CNOR ---
Assessment and Plan Assessment and plan (1) Injury of elbow, left: Qualifiers: Encounter type: initial encounter Qualified Code(s): S59.902A - Unspecified injury of left elbow, initial encounter <LONG Bob - Last Filed: 04/02/24 12:33> Code(s): S59.902A - Unspecified injury of left elbow, initial encounter <LONG Bob - Last Filed: 04/02/24 12:33> Status: Acute <LONG Bob - Last Filed: 04/02/24 12:33> (2) Fracture of spinous process of cervical vertebra: Qualifiers: Encounter type: initial encounter Fracture type: closed Qualified Code(s): S12.9XXA - Fracture of neck, unspecified, initial encounter <LONG Bob - Last Filed: 04/02/24 12:33> Code(s): S12.9XXA - Fracture of neck, unspecified, initial encounter <LONG Bob - Last Filed: 04/02/24 12:33> Status: Acute <LONG Bob - Last Filed: 04/02/24 12:33> (3) Syncope: Qualifiers: Syncope type: unspecified Qualified Code(s): R55 - Syncope and collapse <LONG Bob - Last Filed: 04/02/24 12:33> Code(s): R55 - Syncope and collapse <LONG Bob - Last Filed: 04/02/24 12:33> Status: Acute <LONG Bob - Last Filed: 04/02/24 12:33> Assessment and Plan: Left elbow injury after syncopal episode at home. She did lose consciousness. She is being worked up for this with the hospitalist. Patient has obvious injuries to the elbow. Cell started on radiographs. Unable to see an occult fracture. Possibility for nondisplaced fracture versus soft tissue ligament injury. Discussed care plan with Dr. Dasilva. I recommend an MRI. This is in order. Continue simple sling. CT scan shows subtle possibility for is nondisplaced fracture of the spinous process of C7. Minimal tenderness at this location to palpation. No pain with neck flexion, extension, and rotation of the neck. No pain at the neck at rest. Patient has no new numbness or tingling or other symptoms. I discussed the care plan with Dr. Dasilva. Will treat conservatively without a ne is ck brace. Thank you for the consult to participate in patient's care. <LONG Bob - Last Filed: 04/02/24 12:33> History of Present Illness HPI Consult date: 04/02/24 <LONG Bob - Last Filed: 04/02/24 12:33> 04/02/24 <Dale Dasilva MD - Last Filed: 04/02/24 16:40> Chief complaint: Syncope, Acute kidney injury, C7 spinous process f <LONG Bob - Last Filed: 04/02/24 12:33> Narrative: Patient fell from standing height in her home. She lost consciousness for about 2 minutes. Her did witness the fall. She states her blood pressure has been dropping. She is being worked up for this he was fitted for the syncope. When patient fell she noticed pain in the left elbow. She had a CT scan of the neck as well. She has very little to no pain in her neck. No pain with any motion of the neck. No numbness or tingling. Notes pain is significant in the elbow. No other complaints this time. <LONG Bob - Last Filed: 04/02/24 12:33> Review of Systems Review of Systems: All systems reviewed & are unremarkable except as noted in HPI and below <LONG Bob - Last Filed: 04/02/24 12:33> [facility] Past Medical History Medical History: Medical History Allergic rhinitis Anxiety and depression Asthma B12 deficiency Concussion (12/2023) Crohn's disease in remission Depression with anxiety Diabetic peripheral neuropathy Essential (primary) hypertension GERD (gastroesophageal reflux disease) Hemorrhoids Mixed hyperlipidemia Restless leg syndrome Type 2 diabetes mellitus Vitamin D deficiency <LONG Bob - Last Filed: 04/02
--- NOTE | 2024-04-02 10:54 | P.PNIM_ITS ---
Progress Note: A&P Assessment and Plan (1) Orthostatic hypotension: Code(s): I95.1 - Orthostatic hypotension Status: Acute Assessment and Plan: Patient reports prodrome with bright shining lights prior to syncopal episodes. She has been having dizziness with position changes for about a year but has now synopsized twice in the last six months resulting in traumatic injuries. * Orthostatic blood pressures on admission * Labs were concerning for dehydration * She received 3 L NS bolus and started on maintenance fluids at 150 ml per hour * Orthostatic vital signs repeated 04/02 are still positive: supine 127/49 (75), HR 74, sitting 114/64 (80), HR..., standing 99/52, HR... (2) Syncope: Qualifiers: Syncope type: unspecified Qualified Code(s): R55 - Syncope and collapse Code(s): R55 - Syncope and collapse Status: Acute Assessment and Plan: Syncope with prodrome of bright shining lights. Mostly related to positional changes. Differentials include autonomic dysfunction vs valvular/carotid insufficiency vs orthostasis 2/2 diarrhea and antihypertensives vs less likely stroke vs less likely seizure * orthostatic vital signs are positive---receiving IV fluids * ECHO with bubble study pending * Carotid Doppler ultrasound ordered * On Telemetry, EKG with normal sinus rhythm rate of 79 * Brain MRI from 02/21/24 showed normal aging brain * Patient would benefit from a 30 day event monitor at discharge (3) Acute kidney injury: Code(s): N17.9 - Acute kidney failure, unspecified Status: Acute Assessment and Plan: 2/2 dehydration from diarrhea. NAGMA on labs with carbon dioxide 17 mmol/L * Cr on admission was 1.80 * s/p IV fluids Cr has decreased to 1.00 * Bicarb 325 mg PO BID * Holding lisinopril with VINAY and hypotension (4) Diarrhea: Code(s): R19.7 - Diarrhea, unspecified Status: Acute Assessment and Plan: Patient reports 5 watery stools a day that her clear yellow in appearance for the last week. She recently received IV ertapenem treatment for pyelonephritis. * Leukocytosis on admission. White blood cell count was 14 * C diff testing ordered, stool culture (5) Injury of elbow, left: Qualifiers: Encounter type: initial encounter Qualified Code(s): S59.902A - Unspecified injury of left elbow, initial encounter Code(s): S59.902A - Unspecified injury of left elbow, initial encounter Status: Acute Assessment and Plan: Injury s/p syncopal episode. She has decreased range of motion, edema, and pain. * Elbow x-ray showed no definite acute osseous abnormality but there was elevation of the anterior fat pad which can sometimes indicate a subtle fracture. * Because of this orthopedics was consulted, recs appreciated * Ortho ordered an elbow MRI which showed contusion of proximal olecranon, subcutaneous edema and hematoma posteriorly, mild muscle strain and elbow joint effusion. * Continue with simple sling (6) Fracture of spinous process of cervical vertebra: Qualifiers: Encounter type: initial encounter Fracture type: closed Qualified Code(s): S12.9XXA - Fracture of neck, unspecified, initial encounter Code(s): S12.9XXA - Fracture of neck, unspecified, initial encounter Status: Acute Assessment and Plan: CT of the cervical spine showed highly suggestive fracture at the tip of spinous process of C7 * Emergency room physician spoke with neuro surgery who states the fracture does not require cervical collar or neuro surgical follow-up. * Orthopedics is following as well and
--- NOTE | 2024-04-02 10:54 | PM.IMPN ---
Progress Note: A&P Assessment and Plan (1) Orthostatic hypotension: Code(s): I95.1 - Orthostatic hypotension Status: Acute Assessment and Plan: Patient reports prodrome with bright shining lights prior to syncopal episodes. She has been having dizziness with position changes for about a year but has now synopsized twice in the last six months resulting in traumatic injuries. Orthostatic blood pressures on admission Labs were concerning for dehydration She received 3 L NS bolus and started on maintenance fluids at 150 ml per hour Orthostatic vital signs repeated 04/02 are still positive: supine 127/49 (75), HR 74, sitting 114/64 (80), HR..., standing 99/52, HR... (2) Syncope: Qualifiers: Syncope type: unspecified Qualified Code(s): R55 - Syncope and collapse Code(s): R55 - Syncope and collapse Status: Acute Assessment and Plan: Syncope with prodrome of bright shining lights. Mostly related to positional changes. Differentials include autonomic dysfunction vs valvular/carotid insufficiency vs orthostasis 2/2 diarrhea and antihypertensives vs less likely stroke vs less likely seizure orthostatic vital signs are positive---receiving IV fluids ECHO with bubble study pending Carotid Doppler ultrasound ordered On Telemetry, EKG with normal sinus rhythm rate of 79 Brain MRI from 02/21/24 showed normal aging brain Patient would benefit from a 30 day event monitor at discharge (3) Acute kidney injury: Code(s): N17.9 - Acute kidney failure, unspecified Status: Acute Assessment and Plan: 2/2 dehydration from diarrhea. NAGMA on labs with carbon dioxide 17 mmol/L Cr on admission was 1.80 s/p IV fluids Cr has decreased to 1.00 Bicarb 325 mg PO BID Holding lisinopril with VINAY and hypotension (4) Diarrhea: Code(s): R19.7 - Diarrhea, unspecified Status: Acute Assessment and Plan: Patient reports 5 watery stools a day that her clear yellow in appearance for the last week. She recently received IV ertapenem treatment for pyelonephritis. Leukocytosis on admission. White blood cell count was 14 C diff testing ordered, stool culture (5) Injury of elbow, left: Qualifiers: Encounter type: initial encounter Qualified Code(s): S59.902A - Unspecified injury of left elbow, initial encounter Code(s): S59.902A - Unspecified injury of left elbow, initial encounter Status: Acute Assessment and Plan: Injury s/p syncopal episode. She has decreased range of motion, edema, and pain. Elbow x-ray showed no definite acute osseous abnormality but there was elevation of the anterior fat pad which can sometimes indicate a subtle fracture. Because of this orthopedics was consulted, recs appreciated Ortho ordered an elbow MRI which showed contusion of proximal olecranon, subcutaneous edema and hematoma posteriorly, mild muscle strain and elbow joint effusion. Continue with simple sling (6) Fracture of spinous process of cervical vertebra: Qualifiers: Encounter type: initial encounter Fracture type: closed Qualified Code(s): S12.9XXA - Fracture of neck, unspecified, initial encounter Code(s): S12.9XXA - Fracture of neck, unspecified, initial encounter Status: Acute Assessment and Plan: CT of the cervical spine showed highly suggestive fracture at the tip of spinous process of C7 Emergency room physician spoke with neuro surgery who states the fracture does not require cervical collar or neuro surgical follow-up. 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
[2024-04-02 11:36] LABS: Glucose Point of Care 108 mg/dl (65-105)
[2024-04-02] MEDS: SODIUM CHLORIDE 0.9% IV 1,000 ML 100 ML IV CONT (15:30)
--- NOTE | 2024-04-02 16:40 | PM.PNORT ---
Progress Note: A&P Assessment and Plan (1) Injury of elbow, left: Qualifiers: Encounter type: initial encounter Qualified Code(s): S59.902A - Unspecified injury of left elbow, initial encounter Code(s): S59.902A - Unspecified injury of left elbow, initial encounter Status: Acute (2) Fracture of spinous process of cervical vertebra: Qualifiers: Encounter type: initial encounter Fracture type: closed Qualified Code(s): S12.9XXA - Fracture of neck, unspecified, initial encounter Code(s): S12.9XXA - Fracture of neck, unspecified, initial encounter Status: Acute Plan The MRI completed today shows a contusion of the olecranon with subcutaneous edema and potential muscle strain. No significant ligament or bony injury. She may gradually increase activities as tolerated and continue to move the elbow to avoid stiffness. The C7 process fracture is a stable injury and she is moving her neck comfortably. No further immobilization is required. Subjective Subjective Date/Time Seen: 04/02/24 16:40 Objective Data Vital Signs Vital Signs: Vital Signs - 24 hr 04/01/24 21:18 04/01/24 18:36 04/01/24 18:45 Temperature 36.6 C Pulse Rate 78 76 79 Respiratory Rate 16 23 H 18 Blood Pressure 114/86 Pulse Oximetry 98 100 100 Oxygen Delivery 04/01/24 18:46 04/01/24 19:09 04/01/24 19:16 Temperature Pulse Rate 76 78 80 Respiratory Rate 24 H 20 19 Blood Pressure 120/57 L Pulse Oximetry 100 100 99 Oxygen Delivery 04/01/24 20:01 04/01/24 20:15 04/01/24 20:17 Temperature Pulse Rate 76 78 76 Respiratory Rate 17 21 H 19 Blood Pressure 114/63 Pulse Oximetry 100 100 94 Oxygen Delivery 04/01/24 20:34 04/01/24 20:45 04/01/24 21:00 Temperature Pulse Rate 88 81 80 Respiratory Rate 23 H 14 19 Blood Pressure Pulse Oximetry 98 100 Oxygen Delivery 04/01/24 20:14 04/01/24 22:00 04/01/24 22:04 Temperature 36.5 C 36.5 C 36.5 C Pulse Rate 89 89 85 Respiratory Rate 16 16 16 Blood Pressure 131/60 131/60 123/52 L Pulse Oximetry 100 100 100 Oxygen Delivery 04/01/24 22:04 04/01/24 22:11 04/01/24 22:04 Temperature 36.5 C Pulse Rate 82 75 Respiratory Rate 16 Blood Pressure 98/47 L Pulse Oximetry 100 Oxygen Delivery Room Air 04/02/24 00:04 04/02/24 04:00 04/02/24 05:15 Temperature 37.0 C Pulse Rate 83 78 79 Respiratory Rate 16 Blood Pressure 123/49 L Pulse Oximetry 99 Oxygen Delivery 04/02/24 08:00 04/02/24 08:11 04/02/24 08:12 Temperature 36.6 C Pulse Rate 74 79 80 Respiratory Rate 18 18 Blood Pressure 127/49 L 114/64 99/52 L Pulse Oximetry 98 100 100 Oxygen Delivery 04/02/24 08:00 04/02/24 13:51 04/02/24 08:00 Temperature 36.6 C Pulse Rate 76 76 Respiratory Rate 18 Blood Pressure 108/48 L Pulse Oximetry 100 Oxygen Delivery Room Air 04/02/24 16:00 Temperature Pulse Rate 72 Respiratory Rate Blood Pressure Pulse Oximetry Oxygen Delivery Intake/Output Intake/Output: Intake & Output 03/30/24 03/31/24 04/01/24 04/02/24 23:59 23:59 23:59 23:59 Intake Total 1999 3080.0 Balance 1999 3080.0 Meds/Results Medications: Active Medications Generic Name Dose Route Start Last Admin Trade Name Freq PRN Reason Stop Dose Admin Hydrocodone Bitart/Acetaminophen 1 tab 04/01/24 20:20 04/02/24 00:48 Hydrocodone/Acetaminophen (*Crx) 5-325 Mg Tablet PO 1 tab Q4H PRN Administration Pain Rated 4-6 Albuterol 2 puff 04/02/24 01:02 Albuterol Sulfate (*Sp) Aerosol 1 Puff INHALATION Q4H PRN Shortness Of Breath Or Wheezing Alprazolam 0.25 mg 04/02/24 01:02 Alprazolam (*Crx) 0.25 Mg Tablet PO TID PRN anxiety Azelastine HCl 1 spray 04/02/24 09:00 04/02/24 08:23 Azelastine Hcl Nasal 0.1% 137 Mcg/Spr 30 Ml Btl NASAL 1 spray Q12HR MARINE Administration Cyanocobalamin 1,000 mcg 04/02/24 09:00 04/02/24 08:23
[2024-04-02 16:43] LABS: CRP 0.7 mg/dL (<1.0)
[2024-04-02 16:50] LABS: Glucose Point of Care 116 mg/dl (65-105)
[2024-04-02] MEDS: SODIUM BICARBONATE TAB 325 MG TABLET PO (16:59)
[2024-04-02 20:59] LABS: Glucose Point of Care 113 mg/dl (65-105)
[2024-04-03] VITALS (16 sets, daily range): BP systolic 102–141; BP diastolic 51–63; PULSE 71–81; RESP 17–20; TEMP 36.6–36.9; O2SAT 99–100
[2024-04-03] MEDS: SODIUM CHLORIDE 0.9% IV 1,000 ML 100 ML IV CONT ×2 (01:42→12:39)
[2024-04-03 06:05] LABS: Basophils Percent Auto 0.4 % (0.2-1.2); Eosinophils Absolute Auto 0.2 K/mm3 (0-0.3); Eosinophils Percent Auto 2.9 % (0-4.4); Hemoglobin 10.1 g/dL (12.0-15.0); Immature Granulocyte Absolute 0.04 K/mm3 (0.00-0.031); Immature Granulocyte Percent A 0.5 % (0-0.5); Lymphocytes Absolute Auto 2.17 K/mm3 (0.9-3.2); Lymphocytes Percent Auto 28.9 % (18.3-44.2); Mean Corpuscular HGB Conc 32.6 g/dl (32-36); Mean Corpuscular Hemoglobin 28.1 pg (26-34); Mean Corpuscular Volume 86.1 fl (80-100); Mean Platelet Volume 11.5 fl (7.4-10.4); Monocytes Absolute Auto 0.7 K/mm3 (0.1-0.6); Monocytes Percent Auto 9.1 % (2.6-8.5); Neutrophils Absolute Auto 4.4 K/mm3 (1.3-6.7); Neutrophils Percent Auto 58.2 % (45.5-73.1); Platelet Count Result 206 k/mm3 (150-375); Red Cell Distribution Width 13.7 % (11.5-14.5); White Blood Count 7.5 K/mm3 (4.5-10.0)
[2024-04-03 06:33] LABS: Alanine Aminotransferase 8 U/L (6-35); Albumin Level 2.9 g/dL (3.5-5.1); Alkaline Phosphatase 63 U/L (38-126); Anion Gap 8 mmol/L (4-12); Aspartate Amino Transferase 16 U/L (14-36); Bilirubin,Total 0.2 mg/dL (0.2-1.3); Blood Urea Nitrogen 11 mg/dL (7-17); Calcium 8.6 mg/dL (8.4-10.2); Carbon Dioxide 17 mmol/L (22-30); Chloride 112 mmol/L (98-107); Estimated CRCL calculation 96 ml/min; Estimated Glomerular Filt Rate > 60; Glucose 99 mg/dL (65-110); Potassium 3.7 mmol/L (3.4-5.0); Sodium 137 mmol/L (137-145)
--- NOTE | 2024-04-03 07:08 | P.PNIM_ITS ---
Progress Note: A&P Assessment and Plan (1) Orthostatic hypotension: Code(s): I95.1 - Orthostatic hypotension Status: Acute Assessment and Plan: Patient reports prodrome with bright shining lights prior to syncopal episodes. She has been having dizziness with position changes for about a year but has now synopsized twice in the last six months resulting in traumatic injuries. * Orthostatic blood pressures on admission * Labs were concerning for dehydration * She received 3 L NS bolus and started on maintenance fluids at 150 ml per hour. Decrease fluids to 50 mils an hour. * Orthostatic vital signs repeated 04/02 are still positive: supine 127/49 (75), HR 74, sitting 114/64 (80), HR 74 standing 99/52, HR 70 * Persistent orthostatic hypotension despite IV fluids, good p.o. intake, and decreased diarrhea. * Cardiology was consulted and is recommending initiation of midodrine 5 mg t.i.d. * Patient will also have a 30 day Holter monitor ordered at discharge with follow-up to Dr. Durant's office. (2) Syncope: Qualifiers: Syncope type: unspecified Qualified Code(s): R55 - Syncope and collapse Code(s): R55 - Syncope and collapse Status: Acute Assessment and Plan: Syncope with prodrome of bright shining lights. Mostly related to positional changes. Differentials include autonomic dysfunction vs valvular/carotid insufficiency vs orthostasis 2/2 diarrhea and antihypertensives vs less likely stroke vs less likely seizure * orthostatic vital signs are positive---receiving IV fluids * ECHO showed systolic function normal with an EF 60-65%, left ventricular diastolic dysfunction grade 1 * Carotid Doppler ultrasound was normal * On Telemetry, EKG with normal sinus rhythm rate of 79 * Brain MRI from 02/21/24 showed normal aging brain * Patient would benefit from a 30 day event monitor at discharge * Neurology has ordered an EEG and CT angiogram head and neck for possible cerebellar TIA (3) Anemia: Qualifiers: Anemia type: unspecified type Qualified Code(s): D64.9 - Anemia, unspecified Code(s): D64.9 - Anemia, unspecified Status: Acute Assessment and Plan: Hemoglobin typically ranges 12.4 to 13 g/dL. On admission hemoglobin was 12.6 g/dL but she was dehydrated. Hemoglobin now is 10.1 g/dL. * No overt signs of bleeding. Denies blood in her stool. U/A without blood. * Iron, folate, and vitamin B 12 panels have been reviewed * LDH, reticulocyte, and haptoglobin ordered (4) Acute kidney injury: Code(s): N17.9 - Acute kidney failure, unspecified Status: Acute Assessment and Plan: 2/2 dehydration from diarrhea. NAGMA on labs with carbon dioxide 17 mmol/L * Cr on admission was 1.80 * s/p IV fluids Cr has decreased to 1.00 * Bicarb 325 mg PO BID * Holding lisinopril with VINAY and hypotension (5) Diarrhea: Code(s): R19.7 - Diarrhea, unspecified Status: Acute Assessment and Plan: Patient reports 5 watery stools a day that her clear yellow in appearance for the last week. She recently received IV ertapenem treatment for pyelonephritis. She does have a history of Chron's disease * Leukocytosis on admission. White blood cell count was 14 * C diff testing ordered, stool culture (6) Injury of elbow, left: Qualifiers: Encounter type: initial encounter Qualified Code(s): S59.902A - Unspecified injury of left elbow, initial encounter Code(s): S59.902A - Unspecified injury of left elbow, initial encounter Status: Acute Assessment and Plan: Injury s/p syncopal episode. She has dec
--- NOTE | 2024-04-03 07:08 | PM.IMPN ---
Progress Note: A&P Assessment and Plan (1) Orthostatic hypotension: Code(s): I95.1 - Orthostatic hypotension Status: Acute Assessment and Plan: Patient reports prodrome with bright shining lights prior to syncopal episodes. She has been having dizziness with position changes for about a year but has now synopsized twice in the last six months resulting in traumatic injuries. Orthostatic blood pressures on admission Labs were concerning for dehydration She received 3 L NS bolus and started on maintenance fluids at 150 ml per hour. Decrease fluids to 50 mils an hour. Orthostatic vital signs repeated 04/02 are still positive: supine 127/49 (75), HR 74, sitting 114/64 (80), HR 74 standing 99/52, HR 70 Persistent orthostatic hypotension despite IV fluids, good p.o. intake, and decreased diarrhea. Cardiology was consulted and is recommending initiation of midodrine 5 mg t.i.d. Patient will also have a 30 day Holter monitor ordered at discharge with follow-up to Dr. Durant's office. (2) Syncope: Qualifiers: Syncope type: unspecified Qualified Code(s): R55 - Syncope and collapse Code(s): R55 - Syncope and collapse Status: Acute Assessment and Plan: Syncope with prodrome of bright shining lights. Mostly related to positional changes. Differentials include autonomic dysfunction vs valvular/carotid insufficiency vs orthostasis 2/2 diarrhea and antihypertensives vs less likely stroke vs less likely seizure orthostatic vital signs are positive---receiving IV fluids ECHO showed systolic function normal with an EF 60-65%, left ventricular diastolic dysfunction grade 1 Carotid Doppler ultrasound was normal On Telemetry, EKG with normal sinus rhythm rate of 79 Brain MRI from 02/21/24 showed normal aging brain Patient would benefit from a 30 day event monitor at discharge Neurology has ordered an EEG and CT angiogram head and neck for possible cerebellar TIA (3) Anemia: Qualifiers: Anemia type: unspecified type Qualified Code(s): D64.9 - Anemia, unspecified Code(s): D64.9 - Anemia, unspecified Status: Acute Assessment and Plan: Hemoglobin typically ranges 12.4 to 13 g/dL. On admission hemoglobin was 12.6 g/dL but she was dehydrated. Hemoglobin now is 10.1 g/dL. No overt signs of bleeding. Denies blood in her stool. U/A without blood. Iron, folate, and vitamin B 12 panels have been reviewed LDH, reticulocyte, and haptoglobin ordered (4) Acute kidney injury: Code(s): N17.9 - Acute kidney failure, unspecified Status: Acute Assessment and Plan: 2/2 dehydration from diarrhea. NAGMA on labs with carbon dioxide 17 mmol/L Cr on admission was 1.80 s/p IV fluids Cr has decreased to 1.00 Bicarb 325 mg PO BID Holding lisinopril with VINAY and hypotension (5) Diarrhea: Code(s): R19.7 - Diarrhea, unspecified Status: Acute Assessment and Plan: Patient reports 5 watery stools a day that her clear yellow in appearance for the last week. She recently received IV ertapenem treatment for pyelonephritis. She does have a history of Chron's disease Leukocytosis on admission. White blood cell count was 14 C diff testing ordered, stool culture (6) Injury of elbow, left: Qualifiers: Encounter type: initial encounter Qualified Code(s): S59.902A - Unspecified injury of left elbow, initial encounter Code(s): S59.902A - Unspecified injury of left elbow, initial encounter Status: Acute Assessment and Plan: Injury s/p syncopal episode. She has decreased range of motion, edema, and pain. Elbow x-ray showed no definite acute osseous abnormality but there was elevation of the anterior fat pad which can sometimes indicate a subtle fracture. Because of this orthopedics was consulted, recs appreciated Ortho ordered an elbow MRI which showed contusion of proximal olecranon, subcutaneous edema and hematoma
[2024-04-03] MEDS: CHOLECALCIFEROL 1,000 UNITS TABLET 1000 UNITS PO (08:02)
[2024-04-03] MEDS: CYANOCOBALAMIN 1,000 MCG TABLET 1000 MCG PO (08:02)
[2024-04-03] MEDS: ENOXAPARIN 40 MG/0.4 ML SYRINGE SUB-Q (08:02)
[2024-04-03] MEDS: SODIUM BICARBONATE TAB 325 MG TABLET PO ×2 (08:02→17:45)
[2024-04-03] MEDS: ACETAMINOPHEN 325 MG TABLET 650 MG PO ×2 (08:03→18:30)
[2024-04-03] MEDS: AZELASTINE HCL NASAL 0.1% 137 MCG/SPR 30 ML BTL 1 SPRAY NASAL ×2 (08:04→20:05)
[2024-04-03 08:06] LABS: Glucose Point of Care 110 mg/dl (65-105)
[2024-04-03 08:25] LABS: Cortisol Random 7.18 ug/dL
--- NOTE | 2024-04-03 09:46 | WPDNEURCNPN ---
Assessment and Plan Assessment and plan (1) Orthostatic hypotension: Code(s): I95.1 - Orthostatic hypotension Status: Acute Assessment and Plan: this should be investigated further. Orthostatic hypotension due to drugs or diabetic autonomic neuropathy could be a possibility. You may consider a cardiac consultation. (2) Syncope: Qualifiers: Syncope type: unspecified Qualified Code(s): R55 - Syncope and collapse Code(s): R55 - Syncope and collapse Status: Acute Assessment and Plan: The description does not appear to be suggestive of seizure of course this possibility along with the brainstem transient V-tach does come to mind however an MRI of the brain not so long ago which did not show any abnormality. Carotid Doppler study did not show any significant findings. (3) Injury of elbow, left: Qualifiers: Encounter type: initial encounter Qualified Code(s): S59.902A - Unspecified injury of left elbow, initial encounter Code(s): S59.902A - Unspecified injury of left elbow, initial encounter Status: Acute (4) Diabetes: Qualifiers: Diabetes mellitus type: type 2 Diabetes mellitus intermediate card tender insulin use: without intermediate card tender use Diabetes mellitus complication status: with hyperglycemia Qualified Code(s): E11.65 - Type 2 diabetes mellitus with hyperglycemia Code(s): E11.9 - Type 2 diabetes mellitus without complications Status: Acute Plan I will suggest checking her blood pressure supine and standing morning and evening and consider Cardiology consultation. We will go ahead and obtain EEG also. CT scan of brain and a a recent MRI of the brain and carotid Doppler study did not show any significant abnormalities. The history and findings are not suggestive of a different seizure or transient ischemic attack however the possibility of brainstem transient ischemic attack could be a consideration in terms of differential diagnosis. In that term since he has had injuries and her blood pressure seems to be stable while on almost similar medication I would suggest we can go ahead with a CT angiogram head and neck to look for any significant findings. Consult date: 04/03/24 HPI: Ann Viera is a 58 year old female With history of diabetes mellitus for over 28 years. For past 1 year she has been having spells where she will get dizzy when she stands up. She never had any spell while lying down or sitting but typically when she stands up she may feel lightheaded and many times he has passed out. Most recently she had a injury that the lead to small fracture of the C7 spinous process and also injury to the left elbow. Please refer to the detailed note by the orthopedic surgeon. Patient does not have any history of palpitation or chest pain preceding the onset of the symptoms. Generally she does get some lightheaded feeling before she passes out. Once he came back to her normal self according to her sister she may be little confused for a few minutes however she has never acted combative. She did not have any tongue biting or incontinence of urine. She did not have any weakness in 1 side of the body or loss of speech or vision. She denies any vertigo or hearing problems. The patient also has history of for Crohn's disease and she has occasional diarrhea. Review of Systems Constitutional: Constitutional: Denies chills, Denies fever(s) and Denies weight loss Eyes: Eyes: Denies diplopia and Denies loss of vision ENT: Reports dizziness, Denies hearing loss and Denies tinnitus Comments: Dizziness and passing out spell as described above Cardiovascular: Cardiovascular: Denies chest pain, Reports syncope and Denies dyspnea Respiratory: Respiratory: Denies cough, Denies dyspnea and Denies wheezing Gastrointestinal: Gastrointestinal: Denies abdominal pain, Denies change in bowel habits and Denies vomiting Genitourinary: Genitourinary: D
[2024-04-03 11:14] LABS: Vitamin D 25 Hydroxy 48.5 ng/mL
[2024-04-03 11:21] LABS: Cholesterol 153 mg/dL (0-200); HDL Direct 33 mg/dL; Triglycerides 131 mg/dL (<150)
[2024-04-03 11:31] LABS: LDL Cholesterol Direct 90 mg/dL
--- NOTE | 2024-04-03 11:34 | PM.CNCAR ---
Assessment and Plan Assessment and plan (1) Syncope: Qualifiers: Syncope type: unspecified Qualified Code(s): R55 - Syncope and collapse Code(s): R55 - Syncope and collapse Status: Acute Assessment and Plan: Likely due to orthostatic hypotension. Agree with holding Lisinopril. Encouraged oral fluid intake. Will start Midodrine 5mg TID to help with the orthostasis. Encouraged patient to slowly change body positions. Echocardiogram also pending. 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 (2) Orthostatic hypotension: Code(s): I95.1 - Orthostatic hypotension Status: Acute Assessment and Plan: As above. Could be from volume depletion from recent bacteremia + diarrhea, possibly autonomic dysfunction from her diabetes, or a combination of both. Will trial Midodrine. Encouraged adequate oral fluid intake. Encouraged patient to slowly change body positions. (3) Acute kidney injury: Code(s): N17.9 - Acute kidney failure, unspecified Status: Acute Assessment and Plan: Resolved now. Likely due to dehydration. (4) Essential (primary) hypertension: Code(s): I10 - Essential (primary) hypertension Status: Acute Assessment and Plan: Discontinue home Lisinopril given orthostatic hypotension. (5) Mixed hyperlipidemia: Code(s): E78.2 - Mixed hyperlipidemia Status: Acute Assessment and Plan: Not on a statin. Given her diabetes, consider a high intensity statin. (6) Diabetes: Qualifiers: Diabetes mellitus type: type 2 Diabetes mellitus penitentiary insulin use: without penitentiary use Diabetes mellitus complication status: with hyperglycemia Qualified Code(s): E11.65 - Type 2 diabetes mellitus with hyperglycemia Code(s): E11.9 - Type 2 diabetes mellitus without complications Status: Acute Assessment and Plan: Management as per primary team. Plan Recommendations and plan discussed with Hospitalist. History of Present Illness History of Present Illness Consult date/time: 04/03/24 11:34 Requesting physician: Shilpi Carty APRN Consult reason: Other (Syncope) Reason For Visit: Syncope, Acute kidney injury, C7 spinous process f Narrative: We are consulted for syncope. This is a 58 year old female with diabetes mellitus complicated by peripheral neuropathy, GERD, restless leg syndrome, recent hospitalization for E. coli bacteremia who presented after a syncopal episode. Has been having issues with lightheadedness/dizziness when changing body positions (going from a sitting to standing position, etc.) for the past year. Has been having diarrhea recently as well. No chest pain or palpitations. Orthostatic vital signs are positive. Review of Systems Review of Systems: All systems reviewed & are unremarkable except as noted in HPI and below (HPI) [facility] Past Medical History Medical History Allergic rhinitis Anxiety and depression Asthma B12 deficiency Concussion (12/2023) Crohn's disease in remission Depression with anxiety Diabetic peripheral neuropathy Essential (primary) hypertension GERD (gastroesophageal reflux disease) Hemorrhoids Mixed hyperlipidemia Restless leg syndrome Type 2 diabetes mellitus Vitamin D deficiency Surgical History Surgical History History of appendectomy History of hysterectomy History of partial colectomy 1/3 of large bowel resected Family History Family History Sibling Leukemia Sister at 3 years old Diabetes mellitus Malignant neoplasm of prostate Father , in his 70s Alzheimer disease Acute myocardial infarction Mother , At age 91 Alzheimer disease Blood clot in vein Cerebrovascular acc
[2024-04-03 12:06] LABS: Glucose Point of Care 78 mg/dl (65-105)
[2024-04-03 12:24] LABS: Folic Acid 7.9 ng/mL (2.76->20)
[2024-04-03] MEDS: MIDODRINE HCL 2.5 MG TABLET 5 MG PO ×2 (12:34→17:45)
[2024-04-03 15:33] LABS: Lactate Dehydrogenase 126 U/L (120-246)
[2024-04-03 16:56] LABS: Glucose Point of Care 82 mg/dl (65-105)
[2024-04-03] MEDS: FLUoxetine HCL 20 MG CAPSULE 40 MG PO (20:05)
[2024-04-03] MEDS: rOPINIRole HCL 1 MG TABLET PO (20:05)
[2024-04-03 20:40] LABS: Glucose Point of Care 104 mg/dl (65-105)
[2024-04-04] VITALS (10 sets, daily range): BP systolic 100–155; BP diastolic 55–73; PULSE 66–90; RESP 18–24; TEMP 36.5–36.9; O2SAT 98–100; BMI 29.5
[2024-04-04 06:08] LABS: Immature Reticulocyte Fraction 9.5 % (3.0-15.9); Reticulocyte Hemoglobin Conten 32.5 pg (28.2-36.6); Reticulocyte Percent 1.16 % (0.7-4.3); Reticulocytes Absolute 0.04 10^6/uL (0.02-0.10)
[2024-04-04 06:12] LABS: Basophils Percent Auto 0.3 % (0.2-1.2); Eosinophils Absolute Auto 0.3 K/mm3 (0-0.3); Eosinophils Percent Auto 3.8 % (0-4.4); Hematocrit 30.9 % (37.0-47.0); Hemoglobin 10.5 g/dL (12.0-15.0); Immature Granulocyte Absolute 0.05 K/mm3 (0.00-0.031); Immature Granulocyte Percent A 0.6 % (0-0.5); Lymphocytes Absolute Auto 2.65 K/mm3 (0.9-3.2); Mean Corpuscular Hemoglobin 28.7 pg (26-34); Mean Corpuscular Volume 84.4 fl (80-100); Mean Platelet Volume 11.2 fl (7.4-10.4); Monocytes Absolute Auto 0.6 K/mm3 (0.1-0.6); Monocytes Percent Auto 8.2 % (2.6-8.5); Neutrophils Absolute Auto 4.1 K/mm3 (1.3-6.7); Neutrophils Percent Auto 53.1 % (45.5-73.1); Platelet Count Result 234 k/mm3 (150-375); Red Blood Count 3.66 M/mm3 (4.2-5.4); Red Cell Distribution Width 13.7 % (11.5-14.5); White Blood Count 7.8 K/mm3 (4.5-10.0)
[2024-04-04 06:17] LABS: Alanine Aminotransferase 8 U/L (6-35); Alkaline Phosphatase 55 U/L (38-126); Anion Gap 8 mmol/L (4-12); Aspartate Amino Transferase 16 U/L (14-36); Bilirubin,Total 0.2 mg/dL (0.2-1.3); Blood Urea Nitrogen 9 mg/dL (7-17); Calcium 8.7 mg/dL (8.4-10.2); Carbon Dioxide 21 mmol/L (22-30); Chloride 110 mmol/L (98-107); Estimated CRCL calculation 84 ml/min; Estimated Glomerular Filt Rate > 60; Glucose 91 mg/dL (65-110); Potassium 3.3 mmol/L (3.4-5.0); Sodium 139 mmol/L (137-145)
[2024-04-04 06:36] LABS: Hemoglobin A1C 5.5 % (<5.7)
[2024-04-04] MEDS: CYANOCOBALAMIN 1,000 MCG TABLET 1000 MCG PO (08:15)
[2024-04-04] MEDS: SODIUM BICARBONATE TAB 325 MG TABLET PO (08:15)
[2024-04-04] MEDS: CHOLECALCIFEROL 1,000 UNITS TABLET 1000 UNITS PO (08:15)
[2024-04-04] MEDS: ACETAMINOPHEN 325 MG TABLET 650 MG PO (08:16)
[2024-04-04] MEDS: POTASSIUM CHLORIDE 20 MEQ ER TABLET 40 MEQ PO (08:16)
[2024-04-04] MEDS: MIDODRINE HCL 2.5 MG TABLET 5 MG PO ×2 (08:16→13:24)
[2024-04-04] MEDS: AZELASTINE HCL NASAL 0.1% 137 MCG/SPR 30 ML BTL 1 SPRAY NASAL (08:17)
[2024-04-04 08:20] LABS: Glucose Point of Care 107 mg/dl (65-105)
[2024-04-04] MEDS: ENOXAPARIN 40 MG/0.4 ML SYRINGE SUB-Q (08:21)
[2024-04-04 09:17] LABS: Prolactin 8.2 ng/mL
--- NOTE | 2024-04-04 10:12 | PM.PNORT ---
Progress Note: A&P Assessment and Plan (1) Fracture of spinous process of cervical vertebra: Qualifiers: Encounter type: initial encounter Fracture type: closed Qualified Code(s): S12.9XXA - Fracture of neck, unspecified, initial encounter Code(s): S12.9XXA - Fracture of neck, unspecified, initial encounter Status: Acute (2) Left elbow contusion: Code(s): S50.02XA - Contusion of left elbow, initial encounter Status: Acute Plan Elbow contusion. This will improve with time. I recommend she continue working on range of motion exercises. Sling for comfort only. She may follow-up as needed in our office. Stable neck injury. No pain with motion. May be treated conservatively. Patient may follow-up as needed in the office. Okay for discharge from orthopedic standpoint. Subjective Subjective Date/Time Seen: 04/04/24 10:12 Interval history: Patient has significant improvement is he is a elbow. She has not been wearing sling is and is moving the elbow better. She states the bruising is getting worse but the swelling is improving. Continues to have any pain in her neck. Review of Systems Review of Systems: All systems reviewed & are unremarkable except as noted in HPI and below Exam Narrative: 58-year-old overweight female. No acute distress. No pain with flexion, extension, turning of the head. Very minimal discomfort at the C7 spinous process. No other pain to palpation of the cervical spine. Significant swelling and ecchymosis of the left elbow. Improving. Less pain with motion. Not wearing a simple sling. Range of motion improving 60-160 degrees. Distal neurovascularly intact. Small abrasion at the elbow. Pulses palpable. Objective Data Vital Signs Vital Signs: Vital Signs - 24 hr 04/03/24 14:00 04/03/24 12:00 04/03/24 16:00 Temperature 98.0 F Pulse Rate 73 77 71 Respiratory Rate 18 Blood Pressure 140/55 L Pulse Oximetry 99 Oxygen Delivery 04/03/24 19:48 04/03/24 19:57 04/03/24 19:52 Temperature 97.8 F 97.8 F 97.8 F Pulse Rate 72 72 74 Respiratory Rate 18 18 18 Blood Pressure 133/63 133/63 138/61 Pulse Oximetry 100 100 100 Oxygen Delivery 04/03/24 19:53 04/03/24 20:05 04/03/24 20:00 Temperature 97.8 F Pulse Rate 74 72 73 Respiratory Rate 18 18 Blood Pressure 129/54 L Pulse Oximetry 100 100 Oxygen Delivery Room Air 04/04/24 00:04 04/04/24 04:07 04/04/24 04:00 Temperature 97.9 F Pulse Rate 76 77 77 Respiratory Rate 18 Blood Pressure 145/65 H Pulse Oximetry 98 Oxygen Delivery 04/04/24 07:52 04/04/24 07:01 04/04/24 07:01 Temperature 97.7 F Pulse Rate 77 73 Respiratory Rate 22 H Blood Pressure 155/60 H 130/55 L Pulse Oximetry 100 Oxygen Delivery Room Air 04/04/24 08:28 Temperature Pulse Rate 79 Respiratory Rate Blood Pressure 123/62 Pulse Oximetry Oxygen Delivery Intake/Output Intake/Output: Intake & Output 04/01/24 04/02/24 04/03/24 04/04/24 23:59 23:59 23:59 23:59 Intake Total 1999 3560.0 3155 290 Balance 1999 3560.0 3155 290 Meds/Results Medications: Active Medications Generic Name Dose Route Start Last Admin Trade Name Freq PRN Reason Stop Dose Admin Acetaminophen 650 mg 04/03/24 07:39 04/04/24 08:16 Acetaminophen 325 Mg Tablet PO 650 mg Q4H PRN Administration Mild Pain (1-3) or Fever Hydrocodone Bitart/Acetaminophen 1 tab 04/01/24 20:20 04/02/24 00:48 Hydrocodone/Acetaminophen (*Crx) 5-325 Mg Tablet PO 1 tab Q4H PRN Administration Pain Rated 4-6 Albuterol 2 puff 04/02/24 01:02 Albuterol Sulfate (*Sp) Aerosol 1 Puff INHALATION Q4H PRN Shortness Of Breath Or Wheezing Alprazolam 0.25 mg 04/02/24 01:02 Alprazolam (*Crx) 0.25 Mg Tablet PO TID PRN anxiety Azelastine HCl 1 spray 04/02/24 09:00 04/04/24 08:17 Azelastine Hcl Nasal 0.1% 137 Mcg/Spr 30 Ml Btl NASAL 1 spray Q12HR MARINE
[2024-04-04 11:54] LABS: Glucose Point of Care 117 mg/dl (65-105)
--- NOTE | 2024-04-04 14:45 | PM.PNCARD ---
Progress Note: A&P Assessment and Plan (1) Syncope: Qualifiers: Syncope type: unspecified Qualified Code(s): R55 - Syncope and collapse Code(s): R55 - Syncope and collapse Status: Acute Assessment and Plan: Secondary to orthostatic hypotension Encouraged oral fluid intake. Continue Midodrine 5mg TID to help with the orthostasis. Encouraged patient to slowly change body positions. Echocardiogram reviewed and unremarkab;e 30 day event monitor ordered, which patient can pick up driver from our office during business hours after hospital discharge. (2) Orthostatic hypotension: Code(s): I95.1 - Orthostatic hypotension Status: Acute Assessment and Plan: As above. Could be from volume depletion from recent bacteremia + diarrhea, possibly autonomic dysfunction from her diabetes, or a combination of both. Will trial Midodrine. Encouraged adequate oral fluid intake. Encouraged patient to slowly change body positions. (3) Acute kidney injury: Code(s): N17.9 - Acute kidney failure, unspecified Status: Acute Assessment and Plan: Resolved now. Likely due to dehydration. (4) Essential (primary) hypertension: Code(s): I10 - Essential (primary) hypertension Status: Acute Assessment and Plan: Discontinue home Lisinopril given orthostatic hypotension. (5) Mixed hyperlipidemia: Code(s): E78.2 - Mixed hyperlipidemia Status: Acute Assessment and Plan: Not on a statin. Given her diabetes, consider a high intensity statin. (6) Diabetes: Qualifiers: Diabetes mellitus complication status: with hyperglycemia Diabetes mellitus terminal carman insulin use: without usp use Diabetes mellitus type: type 2 Qualified Code(s): E11.65 - Type 2 diabetes mellitus with hyperglycemia Code(s): E11.9 - Type 2 diabetes mellitus without complications Status: Acute Assessment and Plan: Management as per primary team. Plan Cardiology will sign off. Please call with questions. Subjective Date/time seen: 04/04/24 14:45 Interval history: Cardiology follow up for syncope Date of service 04/04/2024: Feeling well today and has no complaints. Being discharged home. Review of Systems Review of Systems: All systems reviewed & are unremarkable except as noted in HPI and below (HPI) Exam Const: General: comfortable and no acute distress HENMT: Mouth: Yes moist mucous membranes Eyes: General: appearance normal, both eyes and all related structures Sclera: sclerae normal Neck: Neck: supple Resp: Effort & Inspection: normal respiratory effort Cardio: Rate: regular rate Rhythm: regular rhythm Heart sounds: no murmurs Skin: General skin exam: normal color Neuro: Speech: normal speech Psych: Mental Status: mental status grossly normal Affect: normal affect Objective Data Vital Signs Vital Signs: Vital Signs - 24 hr 04/03/24 16:00 04/03/24 19:48 04/03/24 19:57 Temperature 36.6 C 36.6 C Pulse Rate 71 72 72 Respiratory Rate 18 18 Blood Pressure 133/63 133/63 Pulse Oximetry 100 100 Oxygen Delivery 04/03/24 19:52 04/03/24 19:53 04/03/24 20:05 Temperature 36.6 C 36.6 C Pulse Rate 74 74 72 Respiratory Rate 18 18 18 Blood Pressure 138/61 129/54 L Pulse Oximetry 100 100 100 Oxygen Delivery Room Air 04/03/24 20:00 04/04/24 00:04 04/04/24 04:07 Temperature 36.6 C Pulse Rate 73 76 77 Respiratory Rate 18 Blood Pressure 145/65 H Pulse Oximetry 98 Oxygen Delivery 04/04/24 04:00 04/04/24 07:52 04/04/24 07:01 Temperature 36.5 C Pulse Rate 77 77 Respiratory Rate 22 H Blood Pressure 155/60 H Pulse Oximetry 100 Oxygen Delivery Room Air 04/04/24 07:01 04/04/24 08:28 04/04/24 10:20 Temperature Pulse Rate 73 79 83 Respiratory Rate 24 H Blood Pressure 130/55 L 123/62 151/67 H Pulse Oximetry 100 Oxygen Delivery 04/04/24 12:21 08
[2024-04-04 15:59] LABS: Haptoglobin 166 mg/dL (43-212)
--- NOTE | 2024-04-05 14:23 | WPDNEUROLOGY ---
Neurology EEG Report General Information Date of Study: 04/03/24 TEST electroencephalogram DIAGNOSIS episodes of dizziness loss of consciousness CONDITION OF RECORDING bedside recording EEG NUMBER [id number] CLINICAL HISTORY the patient had multiple spells of loss of consciousness also episodes of dizziness upon standing up. EEG DESCRIPTION During wakefulness the background activity consists of posterior dominant alpha rhythm at 10 hertz with an amplitude of 20-40 microvolts which appears moderately formed and reactive to eye opening. Anteriorly low amplitude mixed frequency activity was seen. There is a moderate anteroposterior gradient. However muscle tension artifacts persisted in the frontotemporal area. Hyperventilation or photic stimulation were not performed. Patient did not progress to stage 2 sleep. IMPRESSION This is a normal EEG obtained during awake state.
== END 2024-04-04 15:57 | disposition home or self-care (01) | DRG 312 ==
LOC: ANHED 20:20 → ANH2MED 21:17
PROVIDERS: Emergency Medicine; Psychiatry & Neurology Neurology; Admitting Provider Internal Medicine; Emergency Provider Emergency Medicine; PCP Family Medicine; Visit Provider Nurse Practitioner Acute Care
DX: I95.1 Orthostatic hypotension (principal); S12.600A Unspecified displaced fracture of seventh cervical vertebra, initial encounter for closed fracture; N17.9 Acute kidney failure, unspecified; E87.1 Hypo-osmolality and hyponatremia; D64.9 Anemia, unspecified; R19.7 Diarrhea, unspecified; E11.65 Type 2 diabetes mellitus with hyperglycemia; E86.0 Dehydration; E11.42 Type 2 diabetes mellitus with diabetic polyneuropathy; K21.9 Gastro-esophageal reflux disease without esophagitis; E83.52 Hypercalcemia; G25.81 Restless legs syndrome; S50.02XA Contusion of left elbow, initial encounter; W18.30XA Fall on same level, unspecified, initial encounter; F41.8 Other specified anxiety disorders; E78.2 Mixed hyperlipidemia; D72.829 Elevated white blood cell count, unspecified; R42 Dizziness and giddiness; F07.81 Postconcussional syndrome; Z87.19 Personal history of other diseases of the digestive system; Z90.49 Acquired absence of other specified parts of digestive tract; Z90.710 Acquired absence of both cervix and uterus; Z87.891 Personal history of nicotine dependence
CPT/HCPCS: 36415; 70450; 70496; 70498; 72125; 73080; 73221; 80048; 80053; 80061; 81001; 82306; 82533; 82607; 82746; 82948; 83010; 83036; 83615; 84146; 84484; 85025; 85046; 86140; 87086; 87088; 93005; 93306; 93880; 95816; 96361; 96374; 99285; A4565; A9270; G0378; J1650; J2270; J7030; Q9967

== ENCOUNTER 2024-07-18 10:52 | Outpatient (CLI) | payer BC, SELFPAY ==
--- NOTE | 2024-07-19 11:36 | P.NEURO_ITS ---
Neurology EEG Report General Information Date of Study: 07/18/24 TEST Eeg DIAGNOSIS unspecified convulsions. CONDITION OF RECORDING awake drowsy and asleep. EEG NUMBER [id number] CLINICAL HISTORY Patient reports she has episodes of right upper extremity drawing up and then shaking and spreads to the rest of her body. She was here in hospital 2 months ago for some time for different issues and has had an EEG done at that particular time which was reportedly normal. EEG DESCRIPTION Basic resting occipital frequency consists of low to medium voltage 9 to 11 hertz per 2nd alpha admixed with low-voltage 15 to 18 hertz per 2nd beta activit y and multiple muscle movement artifacts. Hyperventilation not done. Photic stimulation produced poor drive. During sleep bilateral symmetrical sleep activity is noted involving into symmetrical sleep spindles. Non paroxysmal. Nonfocal. Nonlateralizing. IMPRESSION No significant abnormalities noted.
== END 2024-07-18 10:53 | disposition home or self-care (01) ==
PROVIDERS: PCP Family Medicine; Visit Provider Physician Assistant Medical
DX: R56.9 Unspecified convulsions (principal)
CPT/HCPCS: 95816